=== PATIENT | female | born 1960 | race Caucasian/White ===

== ENCOUNTER 2017-02-11 00:28 | Emergency (ER) | payer SELFPAY ==
[~2017-02-11] VITALS: Ht 154.9 cm; Wt 65.0 kg
[2017-02-11] MEDS ORDERED: LISI1TAB3 PO (00:41)
[2017-02-11] MEDS ORDERED: METO25TA35 PO (00:41)
[2017-02-11 03:16] VITALS: BP 149/89
== END 2017-02-11 03:18 | disposition home or self-care (01) ==
LOC: ED 02:15
DX: F32.9 Major depressive disorder, single episode, unspecified (principal); F10.129 Alcohol abuse with intoxication, unspecified; I10 Essential (primary) hypertension
CPT/HCPCS: 99284

== ENCOUNTER 2018-12-15 15:11 | Inpatient (IN) | payer MEDICAID ==
[~2018-12-15] VITALS: Ht 154.9 cm; Wt 55.9 kg
[~2018-12-15 15:11] MED LIST: ETOMIDATE 40 MG/20 ML ONE; LISI1TAB3 PO; METO25TA35 PO; MIDAZOLAM 1 MG/ML, 5ML ONE; PROPOFOL 10 MG/ML, 100ML IV ONE; SUCCINYLCHOLINE 20 MG/ML, 10ML ONE; VECURONIUM 10 MG ONE
[2018-12-15] MEDS ORDERED: LISI-420 PO (15:50)
[2018-12-15] MEDS ORDERED: CITALOPRAM PO (15:50)
[2018-12-15] MEDS ORDERED: CITA20TA6 PO (15:50)
--- NOTE | 2018-12-15 15:54 | NUR ---
CARDIAC & VS MONITORING EQUIPMENT APPLIED, CXR DONE, LABS DRAWN, EKG BS. PT AWAKE, INTERMITTENTLY FOLLOWING COMMANDS, NON-VERBAL AT THIS TIME.
[2018-12-15 16:03] LABS: BASOPHILS # (AUTO) 0.08 x10^3/uL (0-0.1); BASOPHILS % (AUTO) 1 % (0-1); EOSINOPHILS # (AUTO) 0.04 x10^3/uL (0-0.4); EOSINOPHILS % (AUTO) 1 % (1-7); LYMPHOCYTES # (AUTO) 1.04 x10^3/uL (1-3.4); LYMPHOCYTES % (AUTO) 13 % (22-44); MD NO; MEAN CORPUSCULAR HEMOGLOBIN 33.8 pg (27.0-34.8); MEAN CORPUSCULAR HGB CONC 32.7 g/dL (32.4-35.8); MEAN CORPUSCULAR VOLUME 103.4 fL (80-100); MEAN PLATELET VOLUME 8.6 fL (7.4-10.4); MONOCYTES # (AUTO) 0.46 x10^3/uL (0.2-0.8); MONOCYTES % (AUTO) 6 % (2-9); NEUTROPHILS % (AUTO) 80 % (42-75); PLATELET COUNT 183 x10^3/uL (130-400); RED BLOOD COUNT 3.26 x10^6/uL (3.82-5.3)
--- NOTE | 2018-12-15 16:08 | NUR ---
PT INCONTINENT OF SOFT RENETTA COLORED STOOL. DR ONOFRE WILL BE NOTIFIED. PT CLEANSED.
--- NOTE | 2018-12-15 16:09 | NUR ---
TO CT PER ARELIS.
[2018-12-15 16:14] LABS: INTERNATIONAL NORMALIZED RATIO 1.08 (0.93-1.1); PROTHROMBIN TIME 11.4 Seconds (9.6-11.5)
[2018-12-15] MEDS ORDERED: LORazepam 2 MG/ML, 1ML ONE ×2 (16:16)
[2018-12-15 16:17] LABS: ALANINE AMINOTRANSFERASE 38 U/L (12-78); ALBUMIN 3.4 g/dL (3.4-5.0); ANION GAP 10 mmol/L (5-15); CALCIUM 10.3 mg/dL (8.5-10.1); CHLORIDE 107 mmol/L (98-107)
[2018-12-15 16:20] LABS: ALKALINE PHOSPHATASE 148 U/L (45-117); BILIRUBIN,TOTAL 0.8 mg/dL (0.2-1.0); TOTAL PROTEIN 7.6 g/dL (6.4-8.2); TROPONIN I < 0.015 ng/mL (0.000-0.045)
[2018-12-15 16:22] LABS: ACETAMINOPHEN < 2 mcg/mL (10-30); SALICYLATE LEVEL < 1.7 mg/dL (2.8-20.0)
--- NOTE | 2018-12-15 16:24 | NUR ---
CONVENTIONAL MORTGAGE UNDERWRITER: RAPID RESPONSE CALLED BY CT FOR SIEZURE ACTIVITY PER CT. [address] RN'S AND TECH TO CT TO ASSIST. MD RYAN. MERLYN ORDERED FROM PHARMACY AT THIS TIME.
--- NOTE | 2018-12-15 16:29 | NUR ---
PT RETURNED TO ED ROOM 35. ATIVAN 1MG IV GIVEN WHILE IN CT. PT POST-ICTAL. CARDIAC & VS MONITORING EQUIPMENT APPLIED, O2 2L PER MASK ON (APPLIED IN CT), O2 SAT 99%. SIDE RAILS UP X2. SEIZURE PADS WILL BE PLACED. O2 MASK REPLACED W/ NC. PT WAS INCONTINENT OF SOFT RENETTA COLORED STOOL DURING SEIZURE; WILL BE CLEANSED
[2018-12-15] MEDS ORDERED: LEVETIRACETAM 1,000 MG in SODIUM CHLORIDE 0.9% 100 ML IV ONE ×2 (16:30→21:00)
[2018-12-15] MEDS ORDERED: LORazepam 2 MG/ML, 1ML IVPush ONE (16:30)
[2018-12-15] MEDS ORDERED: SODIUM CHLORIDE FLUSH 10ML SYR IVF ONE (16:30)
[2018-12-15 16:38] LABS: FREE T4 (FREE THYROXINE) 1.35 ng/dL (0.76-1.46)
--- NOTE | 2018-12-15 16:43 | NUR ---
DR ONOFRE BS; APPRISED OF SITUATION.
[2018-12-15] MEDS ORDERED: HEPARIN 5,000 UNITS/ML, 1ML SQ SCH (17:00)
[2018-12-15] MEDS ORDERED: hydrALAzine 20 MG/ML, 1ML IVPush PRN (17:00)
[2018-12-15] MEDS ORDERED: POTASSIUM CHLORIDE 20 MEQ TAB.ER.PRT PO ONE (17:00)
[2018-12-15] MEDS ORDERED: LABETALOL 5MG/ML, 20ML IVPush PRN (17:00)
[2018-12-15] MEDS ORDERED: ENALAPRILAT 1.25 MG/ML, 2ML IVPush PRN (17:00)
[2018-12-15] MEDS ORDERED: ACETAMINOPHEN 325 MG TABLET PO PRN (17:00)
[2018-12-15] MEDS ORDERED: ONDANSETRON 2MG/ML, 2ML IVPush PRN (17:00)
--- NOTE | 2018-12-15 17:00 | NUR ---
ANKLE BRACELET & GLASSES BAGGED & PLACED INTO PT'S PURSE. UNABLE TO REMOVE RT WRIST BRACELET.
--- NOTE | 2018-12-15 17:05 | NUR ---
MINESHPPRA INFUSION HELD FOR MRI PURPOSES. WILL RESTART UPON PT'S RETURN. PT TO MRI PER ARELIS
--- NOTE | 2018-12-15 17:13 | NUR ---
PT REPORT TO ROXIE OSUNA RN. PT CARE TRANSFERRED.
--- NOTE | 2018-12-15 17:31 | NUR ---
PT BACK MRI.
--- NOTE | 2018-12-15 17:32 | NUR ---
LUNCH RN: LUPE MEYERS STARTED. REPROT TO ELENA HARTLEY.
[2018-12-15 17:40] LABS: CULTURE INDICATED? YES; MICROSCOPIC INDICATED
[2018-12-15 17:49] LABS: AMPHETAMINE SCREEN, URINE Negative (Negative); BARBITURATE SCREEN, URINE Negative (Negative); BENZODIAZEPINE SCREEN, URINE Negative (Negative); CANNABINOID SCREEN, URINE Positive (Negative); COCAINE SCREEN, URINE Negative (Negative); METHADONE SCREEN, URINE Negative (Negative); OPIATE SCREEN, URINE Negative (Negative)
[2018-12-15 17:59] LABS: CLOSTRIDIUM DIFFICILE ANTIGEN NEGATIVE; CLOSTRIDIUM DIFFICILE TOXIN NEGATIVE (Negative)
[2018-12-15 18:25] VITALS: BP 148/85
[2018-12-15] MEDS: AMPICILLIN 2 GM in SODIUM CHLORIDE 0.9% 100 ML IV SCH ×2 (19:00→23:05)
[2018-12-15] MEDS ORDERED: VANCOMYCIN PER PHARMACY MC PRN (19:00)
[2018-12-15] MEDS ORDERED: PHARMACY MAY ADJ FOR RENAL FX MC PRN (19:30)
[2018-12-15] MEDS ORDERED: LORazepam 2 MG/ML, 1ML IVPush PRN ×2 (19:30→22:30)
[2018-12-15 19:38] VITALS: BP 142/84
[2018-12-15] MEDS ORDERED: NOREPINEPHRINE 1 MG/ML, 4ML ONE (19:59)
[2018-12-15] MEDS ORDERED: VANCOMYCIN 1,300 MG in SODIUM CHLORIDE 0.9% 250 ML IV SCH (20:00)
[2018-12-15] MEDS ORDERED: SODIUM CHLORIDE 0.9% IV ONE (20:00)
[2018-12-15] MEDS ORDERED: PHARMACOKINETIC CONSULTATION MC ONE (20:00)
[2018-12-15] MEDS ORDERED: PHENYTOIN SODIUM IV ONE (20:00)
[2018-12-15] MEDS ORDERED: PHARMACOKINETIC MONITORING MC PRN (20:00)
[2018-12-15] MEDS ORDERED: NOREPINEPHRINE 4 MG in SODIUM CHLORIDE 0.9% 246 ML IV PRN ×2 (20:30→22:09)
[2018-12-15] MEDS ORDERED: FILTER 0.22 MICRON FOR PHENYTOIN IV PRN (20:30)
[2018-12-15] MEDS: NS + 20MEQ KCL 1,000 ML IV SCH (20:39)
[2018-12-15] MEDS ORDERED: FENTANYL PF 100 MCG/2ML ONE (20:52)
[2018-12-15] MEDS ORDERED: MIDAZOLAM 1 MG/ML, 5ML IVPush ONE (21:00)
[2018-12-15] MEDS ORDERED: FENTANYL PF 100 MCG/2ML IVPush ONE (21:00)
[2018-12-15] MEDS ORDERED: LEVETIRACETAM 500 MG TABLET PO SCH (21:00)
[2018-12-15] MEDS ORDERED: VECURONIUM 10 MG IVPush ONE (21:00)
[2018-12-15] MEDS ORDERED: DEXAMETHASONE 4 MG/ML, 5ML IVPush STA (22:13)
[2018-12-15] MEDS ORDERED: LIDOCAINE-MPF 1%, 2ML ENDO PRN (22:30)
[2018-12-15] MEDS ORDERED: PHARMACY MAY ADJ FOR RENAL FX MC SCH (22:30)
[2018-12-15] MEDS ORDERED: SODIUM CHLORIDE 0.9%, 500ML IV ONE (22:30)
[2018-12-15] MEDS ORDERED: DEXTROSE 4 GM TAB.CHEW PO PRN (22:30)
[2018-12-15] MEDS ORDERED: DEXTROSE 50%, 50ML SYRINGE IVPush PRN (22:30)
[2018-12-15] MEDS: ALBUTEROL/IPRATROPIUM 2.5MG/0.5MG, 3 ML INLINE SCH (22:30)
[2018-12-15] MEDS ORDERED: GLUCAGON 1 MG IM PRN (22:30)
[2018-12-15 22:31] LABS: GLUCOSE, CSF 106 mg/dL (40-80); TOTAL PROTEIN,CSF 74 mg/dL (15-45)
[2018-12-15] MEDS: ACYCLOVIR 650 MG in SODIUM CHLORIDE 0.9% 100 ML IV SCH (22:32)
[2018-12-15] MEDS: FENTANYL PF 100 MCG/2ML IVPush PRN (22:33)
[2018-12-15] MEDS: CEFTRIAXONE PMX 2GM/50ML 50 ML IV SCH (23:06)
[2018-12-15 23:14] LABS: ANION GAP 10 mmol/L (5-15); CHLORIDE 112 mmol/L (98-107); CREATININE 0.86 mg/dL (0.55-1.02); TRIGLYCERIDES 113 mg/dL (50-200)
[2018-12-15 23:19] LABS: TROPONIN I < 0.015 ng/mL (0.000-0.045)
[2018-12-15 23:25] LABS: BASOPHILS # (AUTO) 0.02 x10^3/uL (0-0.1); BASOPHILS % (AUTO) 0 % (0-1); EOSINOPHILS % (AUTO) 0 % (1-7); LYMPHOCYTES % (AUTO) 8 % (22-44); MD NO; MEAN CORPUSCULAR HEMOGLOBIN 34.4 pg (27.0-34.8); MEAN CORPUSCULAR HGB CONC 33.8 g/dL (32.4-35.8); MEAN CORPUSCULAR VOLUME 101.7 fL (80-100); MEAN PLATELET VOLUME 8.3 fL (7.4-10.4); MONOCYTES % (AUTO) 4 % (2-9); NEUTROPHILS # (AUTO) 6.42 x10^3/uL (1.8-6.8); NEUTROPHILS % (AUTO) 88 % (42-75); PLATELET COUNT 158 x10^3/uL (130-400); RED BLOOD COUNT 2.78 x10^6/uL (3.82-5.3); RED CELL DISTRIBUTION WIDTH 13.8 % (9.6-15.2)
[2018-12-15 23:28] LABS: MICROSCOPIC NOT IND
[2018-12-15] MEDS ORDERED: MAGNESIUM SULFATE PMX 2GM/50ML 50 ML IV ONE (23:30)
[2018-12-15] MEDS ORDERED: POTASSIUM PHOSPHATE 44 MEQ in SODIUM CHLORIDE 0.9% 500 ML IV ONE (23:30)
[2018-12-15 23:35] LABS: CULTURE INDICATED? NO
[2018-12-16] MEDS: PROPOFOL 100 ML IV PRN ×4 (00:22→14:06)
[2018-12-16] MEDS: ALBUTEROL/IPRATROPIUM 2.5MG/0.5MG, 3 ML INLINE SCH ×2 (02:00→07:15)
[2018-12-16] MEDS: AMPICILLIN 2 GM in SODIUM CHLORIDE 0.9% 100 ML IV SCH ×5 (03:49→22:02)
[2018-12-16] MEDS: HEPARIN 5,000 UNITS/ML, 1ML SQ SCH ×3 (03:53→20:07)
[2018-12-16 04:00] VITALS: BP 112/67
[2018-12-16 04:53] LABS: MEAN CORPUSCULAR HEMOGLOBIN 34.6 pg (27.0-34.8); MEAN CORPUSCULAR HGB CONC 34.1 g/dL (32.4-35.8); MEAN CORPUSCULAR VOLUME 101.5 fL (80-100); PLATELET COUNT 124 x10^3/uL (130-400); RED BLOOD COUNT 2.62 x10^6/uL (3.82-5.3); RED CELL DISTRIBUTION WIDTH 13.8 % (9.6-15.2)
[2018-12-16 04:55] LABS: ANION GAP 11 mmol/L (5-15); CALCIUM 8.1 mg/dL (8.5-10.1); CHLORIDE 112 mmol/L (98-107); CHOLESTEROL, TOTAL 121 mg/dL (140-239); CREATININE 0.95 mg/dL (0.55-1.02); TRIGLYCERIDES 90 mg/dL (50-200); VLDL CHOLESTEROL 18 mg/dL (0-25)
[2018-12-16 05:00] LABS: CHOL/HDL RATIO 1.9; HDL CHOL % 53 % (28-40); HDL CHOLESTEROL (DIRECT) 64 mg/dL (40-60); LDL CHOLESTEROL,CALCULATED 39 mg/dL (54-169); LDL/HDL RATIO 0.6 (0.5-3.0); TROPONIN I 0.021 ng/mL (0.000-0.045)
[2018-12-16 05:06] LABS: THYROID STIMULATING HORMONE 0.843 mIU/L (0.358-3.740)
[2018-12-16 05:41] LABS: BASOPHILS # (AUTO) 0.03 x10^3/uL (0-0.1); BASOPHILS % (AUTO) 0 % (0-1); EOSINOPHILS % (AUTO) 0 % (1-7); LYMPHOCYTES % (AUTO) 5 % (22-44); MD SCAN; MONOCYTES # (AUTO) 0.05 x10^3/uL (0.2-0.8); MONOCYTES % (AUTO) 1 % (2-9); NEUTROPHILS # (AUTO) 7.29 x10^3/uL (1.8-6.8); NEUTROPHILS % (AUTO) 94 % (42-75)
[2018-12-16] MEDS ORDERED: INSULIN LISPRO 100 UNITS/ML, PEN SQ-INSULIN SCH (07:00)
[2018-12-16] MEDS ORDERED: MIDAZOLAM 1 MG/ML, 2ML ONE (08:09)
[2018-12-16] MEDS: MIDAZOLAM 1 MG/ML, 2ML IVPush PRN (08:20)
[2018-12-16] MEDS: LISINOPRIL 20 MG TABLET PO SCH (09:00)
[2018-12-16] MEDS ORDERED: LEVETIRACETAM 500 MG TABLET PO SCH (09:00)
[2018-12-16] MEDS: METOPROLOL TARTRATE 25 MG TABLET PO SCH (09:00)
[2018-12-16] MEDS ORDERED: FOLIC ACID 1 MG TABLET PO ONE (09:30)
[2018-12-16] MEDS: SODIUM CHLORIDE FLUSH 10ML SYR IVF SCH ×2 (09:33→21:16)
[2018-12-16] MEDS: LEVETIRACETAM 1,000 MG in SODIUM CHLORIDE 0.9% 100 ML IV SCH ×2 (09:33→21:16)
[2018-12-16] MEDS: FAMOTIDINE 20 MG/2 ML IVPush SCH ×2 (09:48→21:16)
[2018-12-16] MEDS ORDERED: THIAMINE 200 MG in SODIUM CHLORIDE 0.9% 50 ML IV ONE (10:00)
[2018-12-16] MEDS: THIAMINE 100 MG in SODIUM CHLORIDE 0.9% 50 ML IV SCH (10:30)
[2018-12-16] MEDS: CEFTRIAXONE PMX 2GM/50ML 50 ML IV SCH ×2 (11:03→23:05)
[2018-12-16] MEDS: ACYCLOVIR 650 MG in SODIUM CHLORIDE 0.9% 100 ML IV SCH ×2 (12:01→22:02)
[2018-12-16] MEDS: VANCOMYCIN PMX 1GM/200ML 200 ML IVPB SCH (12:05)
[2018-12-16] MEDS: NS + 20MEQ KCL 1,000 ML IV SCH (12:20)
[2018-12-16 14:08] LABS: FREE T4 (FREE THYROXINE) 1.29 ng/dL (0.76-1.46)
[2018-12-16] MEDS ORDERED: MIDAZOLAM 1 MG/ML, 5ML ONE (14:39)
[2018-12-16] MEDS ORDERED: MIDAZOLAM 1 MG/ML, 5ML IVPush ONE (15:00)
[2018-12-16] MEDS: MIDAZOLAM HCL 25 MG in SODIUM CHLORIDE 0.9% 245 ML IV PRN ×2 (15:08→23:05)
[2018-12-16] MEDS: INSULIN LISPRO 100 UNITS/ML, PEN SQ-INSULIN SCH ×2 (16:31→22:00)
[2018-12-17] MEDS: NS + 20MEQ KCL 1,000 ML IV SCH (01:04)
[2018-12-17] MEDS: AMPICILLIN 2 GM in SODIUM CHLORIDE 0.9% 100 ML IV SCH ×2 (02:09→05:30)
[2018-12-17 04:00] VITALS: BP 110/64
[2018-12-17] MEDS: INSULIN LISPRO 100 UNITS/ML, PEN SQ-INSULIN SCH ×4 (04:00→21:40)
[2018-12-17] MEDS: HEPARIN 5,000 UNITS/ML, 1ML SQ SCH ×3 (04:55→21:15)
[2018-12-17 05:08] LABS: BASOPHILS # (AUTO) 0.01 x10^3/uL (0-0.1); BASOPHILS % (AUTO) 0 % (0-1); EOSINOPHILS % (AUTO) 0 % (1-7); LYMPHOCYTES # (AUTO) 1.14 x10^3/uL (1-3.4); LYMPHOCYTES % (AUTO) 16 % (22-44); MD NO; MEAN CORPUSCULAR HEMOGLOBIN 34.2 pg (27.0-34.8); MEAN CORPUSCULAR HGB CONC 33.6 g/dL (32.4-35.8); MEAN CORPUSCULAR VOLUME 101.8 fL (80-100); MEAN PLATELET VOLUME 8.5 fL (7.4-10.4); MONOCYTES # (AUTO) 0.49 x10^3/uL (0.2-0.8); MONOCYTES % (AUTO) 7 % (2-9); NEUTROPHILS # (AUTO) 5.32 x10^3/uL (1.8-6.8); NEUTROPHILS % (AUTO) 77 % (42-75); PLATELET COUNT 126 x10^3/uL (130-400); RED BLOOD COUNT 2.58 x10^6/uL (3.82-5.3); RED CELL DISTRIBUTION WIDTH 13.4 % (9.6-15.2)
[2018-12-17 05:17] LABS: ALANINE AMINOTRANSFERASE 22 U/L (12-78); ALBUMIN 2.5 g/dL (3.4-5.0); ANION GAP 11 mmol/L (5-15); CALCIUM 8.2 mg/dL (8.5-10.1); CHLORIDE 115 mmol/L (98-107); CREATININE 0.85 mg/dL (0.55-1.02)
[2018-12-17 05:20] LABS: ALKALINE PHOSPHATASE 93 U/L (45-117); BILIRUBIN,TOTAL 0.4 mg/dL (0.2-1.0); TOTAL PROTEIN 5.7 g/dL (6.4-8.2)
[2018-12-17] MEDS: MIDAZOLAM HCL 25 MG in SODIUM CHLORIDE 0.9% 245 ML IV PRN ×4 (05:30→22:04)
[2018-12-17] MEDS: VANCOMYCIN PMX 1GM/200ML 200 ML IVPB SCH (05:31)
[2018-12-17] MEDS ORDERED: NS + 20MEQ KCL 1,000 ML IV SCH (08:30)
[2018-12-17] MEDS: LISINOPRIL 20 MG TABLET PO SCH (09:00)
[2018-12-17] MEDS: METOPROLOL TARTRATE 25 MG TABLET PO SCH (09:00)
[2018-12-17] MEDS: SODIUM CHLORIDE FLUSH 10ML SYR IVF SCH ×2 (09:52→21:13)
[2018-12-17] MEDS: ACYCLOVIR 650 MG in SODIUM CHLORIDE 0.9% 100 ML IV SCH ×2 (09:52→21:12)
[2018-12-17] MEDS: LEVETIRACETAM 1,000 MG in SODIUM CHLORIDE 0.9% 100 ML IV SCH ×2 (09:52→21:12)
[2018-12-17] MEDS: FAMOTIDINE 20 MG/2 ML IVPush SCH ×2 (09:58→21:15)
[2018-12-17] MEDS: THIAMINE 100 MG in SODIUM CHLORIDE 0.9% 50 ML IV SCH (10:08)
--- NOTE | 2018-12-17 10:31 | NUR ---
TF GOAL: w/ propofol: PROMOTE @ 45ML/HR off propofol: PROMOTE @ 55ML/HR
[2018-12-17] MEDS ORDERED: MAGNESIUM SULFATE 4 GM in SODIUM CHLORIDE 0.9% 100 ML IV ONE (16:30)
[2018-12-17] MEDS: FENTANYL PF 100 MCG/2ML IVPush PRN ×2 (19:15→22:04)
[2018-12-17] MEDS: CEFTRIAXONE PMX 2GM/50ML 50 ML IV SCH (22:59)
[2018-12-18] MEDS: VANCOMYCIN PMX 1GM/200ML 200 ML IVPB SCH ×2 (00:11→18:06)
[2018-12-18] MEDS: MIDAZOLAM HCL 25 MG in SODIUM CHLORIDE 0.9% 245 ML IV PRN (01:12)
[2018-12-18] MEDS: INSULIN LISPRO 100 UNITS/ML, PEN SQ-INSULIN SCH ×4 (04:00→23:05)
[2018-12-18] MEDS: HEPARIN 5,000 UNITS/ML, 1ML SQ SCH ×3 (04:08→20:38)
[2018-12-18] MEDS: ACYCLOVIR 650 MG in SODIUM CHLORIDE 0.9% 100 ML IV SCH ×3 (04:08→20:37)
[2018-12-18] MEDS ORDERED: MIDAZOLAM HCL 50 MG in SODIUM CHLORIDE 0.9% 240 ML IV PRN (04:30)
[2018-12-18 04:53] LABS: BASOPHILS # (AUTO) 0.01 x10^3/uL (0-0.1); BASOPHILS % (AUTO) 0 % (0-1); EOSINOPHILS # (AUTO) 0.01 x10^3/uL (0-0.4); EOSINOPHILS % (AUTO) 0 % (1-7); LYMPHOCYTES % (AUTO) 25 % (22-44); MD NO; MEAN CORPUSCULAR HEMOGLOBIN 33.2 pg (27.0-34.8); MEAN CORPUSCULAR HGB CONC 32.7 g/dL (32.4-35.8); MEAN CORPUSCULAR VOLUME 101.5 fL (80-100); MEAN PLATELET VOLUME 8.6 fL (7.4-10.4); MONOCYTES # (AUTO) 0.39 x10^3/uL (0.2-0.8); MONOCYTES % (AUTO) 10 % (2-9); NEUTROPHILS # (AUTO) 2.56 x10^3/uL (1.8-6.8); NEUTROPHILS % (AUTO) 64 % (42-75); PLATELET COUNT 108 x10^3/uL (130-400); RED BLOOD COUNT 2.46 x10^6/uL (3.82-5.3); RED CELL DISTRIBUTION WIDTH 13.3 % (9.6-15.2)
[2018-12-18 05:02] LABS: ALANINE AMINOTRANSFERASE 20 U/L (12-78); ANION GAP 9 mmol/L (5-15); CALCIUM 8.5 mg/dL (8.5-10.1); CHLORIDE 115 mmol/L (98-107)
[2018-12-18 05:05] LABS: ALKALINE PHOSPHATASE 86 U/L (45-117); BILIRUBIN,TOTAL 0.4 mg/dL (0.2-1.0); CREATININE 0.87 mg/dL (0.55-1.02); TOTAL PROTEIN 5.1 g/dL (6.4-8.2); TRIGLYCERIDES 87 mg/dL (50-200)
[2018-12-18] MEDS: ALBUTEROL/IPRATROPIUM 2.5MG/0.5MG, 3 ML INLINE PRN ×2 (06:15→10:00)
[2018-12-18] MEDS ORDERED: POTASSIUM CHLORIDE 10% 40 MEQ/30 ML UDC PO ONE (08:00)
[2018-12-18] MEDS: LISINOPRIL 20 MG TABLET PO SCH (09:00)
[2018-12-18] MEDS: SODIUM CHLORIDE FLUSH 10ML SYR IVF SCH ×2 (10:20→20:38)
[2018-12-18] MEDS: METOPROLOL TARTRATE 25 MG TABLET PO SCH (10:20)
[2018-12-18] MEDS: FENTANYL PF 100 MCG/2ML IVPush PRN ×7 (10:20→23:00)
[2018-12-18] MEDS: FAMOTIDINE 20 MG/2 ML IVPush SCH ×2 (10:20→20:38)
[2018-12-18] MEDS: DEXMEDETOMIDINE 200 MCG in SODIUM CHLORIDE 0.9% 48 ML IV PRN ×3 (10:22→20:51)
[2018-12-18] MEDS: THIAMINE 100 MG in SODIUM CHLORIDE 0.9% 50 ML IV SCH (10:35)
[2018-12-18] MEDS: LEVETIRACETAM 1,000 MG in SODIUM CHLORIDE 0.9% 100 ML IV SCH ×2 (10:35→21:48)
[2018-12-18] MEDS: DIAZEPAM 5 MG/ML, 2ML IVPush PRN ×2 (15:06→23:17)
[2018-12-18] MEDS: CEFTRIAXONE PMX 2GM/50ML 50 ML IV SCH (23:21)
[2018-12-19] MEDS: PROPOFOL 100 ML IV PRN ×2 (01:14→10:07)
[2018-12-19] MEDS: DEXMEDETOMIDINE 200 MCG in SODIUM CHLORIDE 0.9% 48 ML IV PRN ×4 (02:44→23:34)
[2018-12-19] MEDS: ACYCLOVIR 650 MG in SODIUM CHLORIDE 0.9% 100 ML IV SCH ×3 (03:40→20:45)
[2018-12-19] MEDS: HEPARIN 5,000 UNITS/ML, 1ML SQ SCH ×3 (03:47→20:45)
[2018-12-19] MEDS: INSULIN LISPRO 100 UNITS/ML, PEN SQ-INSULIN SCH ×4 (03:47→22:00)
[2018-12-19 06:12] LABS: ALANINE AMINOTRANSFERASE 19 U/L (12-78); ALBUMIN 1.9 g/dL (3.4-5.0); ANION GAP 7 mmol/L (5-15); CALCIUM 8.9 mg/dL (8.5-10.1); CHLORIDE 117 mmol/L (98-107); CREATININE 0.83 mg/dL (0.55-1.02)
[2018-12-19 06:15] LABS: ALKALINE PHOSPHATASE 79 U/L (45-117); BILIRUBIN,TOTAL 0.3 mg/dL (0.2-1.0); TOTAL PROTEIN 4.8 g/dL (6.4-8.2)
[2018-12-19 06:16] LABS: MEAN CORPUSCULAR HEMOGLOBIN 32.7 pg (27.0-34.8); MEAN CORPUSCULAR HGB CONC 32.7 g/dL (32.4-35.8); MEAN PLATELET VOLUME 9.3 fL (7.4-10.4); PLATELET COUNT 97 x10^3/uL (130-400); RED CELL DISTRIBUTION WIDTH 13.5 % (9.6-15.2)
[2018-12-19 06:35] LABS: BASOPHILS # (AUTO) 0.03 x10^3/uL (0-0.1); BASOPHILS % (AUTO) 1 % (0-1); EOSINOPHILS # (AUTO) 0.02 x10^3/uL (0-0.4); EOSINOPHILS % (AUTO) 1 % (1-7); LYMPHOCYTES # (AUTO) 0.72 x10^3/uL (1-3.4); LYMPHOCYTES % (AUTO) 22 % (22-44); MD SCAN; MONOCYTES # (AUTO) 0.37 x10^3/uL (0.2-0.8); MONOCYTES % (AUTO) 11 % (2-9); NEUTROPHILS # (AUTO) 2.16 x10^3/uL (1.8-6.8); NEUTROPHILS % (AUTO) 66 % (42-75)
[2018-12-19] MEDS ORDERED: MAGNESIUM SULFATE PMX 4GM/100M 100 ML IVPB ONE (07:30)
[2018-12-19] MEDS ORDERED: DIAZEPAM 5 MG/ML, 2ML IVPush SCH (08:30)
[2018-12-19] MEDS: metroNIDAZOLE 500 MG TABLET PO SCH ×3 (10:07→20:45)
[2018-12-19] MEDS: LISINOPRIL 20 MG TABLET PO SCH (10:07)
[2018-12-19] MEDS: FAMOTIDINE 20 MG/2 ML IVPush SCH ×2 (10:07→20:45)
[2018-12-19] MEDS: POTASSIUM CHLORIDE 10% 40 MEQ/30 ML UDC PO SCH ×2 (10:07→20:45)
[2018-12-19] MEDS: LEVETIRACETAM 1,000 MG in SODIUM CHLORIDE 0.9% 100 ML IV SCH ×2 (10:08→21:38)
[2018-12-19] MEDS: SODIUM CHLORIDE FLUSH 10ML SYR IVF SCH ×2 (10:08→20:46)
[2018-12-19] MEDS: METOPROLOL TARTRATE 25 MG TABLET PO SCH (10:08)
[2018-12-19] MEDS: THIAMINE 200 MG in SODIUM CHLORIDE 0.9% 50 ML IV SCH (10:08)
[2018-12-19] MEDS: FENTANYL PF 100 MCG/2ML IVPush PRN (12:49)
[2018-12-19] MEDS ORDERED: DIAZEPAM 5 MG/ML, 10ML VIAL IVPush SCH (13:00)
[2018-12-19] MEDS: MIDAZOLAM 1 MG/ML, 2ML IVPush PRN (21:39)
[2018-12-20] MEDS ORDERED: DIAZEPAM 5 MG TABLET PO PRN (01:00)
[2018-12-20] MEDS: INSULIN LISPRO 100 UNITS/ML, PEN SQ-INSULIN SCH ×4 (04:00→21:43)
[2018-12-20] MEDS: ACYCLOVIR 650 MG in SODIUM CHLORIDE 0.9% 100 ML IV SCH ×2 (04:33→12:01)
[2018-12-20] MEDS: HEPARIN 5,000 UNITS/ML, 1ML SQ SCH ×3 (04:33→21:42)
[2018-12-20 05:11] LABS: BASOPHILS # (AUTO) 0.04 x10^3/uL (0-0.1); BASOPHILS % (AUTO) 1 % (0-1); EOSINOPHILS # (AUTO) 0.04 x10^3/uL (0-0.4); EOSINOPHILS % (AUTO) 1 % (1-7); LYMPHOCYTES # (AUTO) 1.11 x10^3/uL (1-3.4); LYMPHOCYTES % (AUTO) 24 % (22-44); MD NO; MEAN CORPUSCULAR HEMOGLOBIN 33.4 pg (27.0-34.8); MEAN CORPUSCULAR HGB CONC 32.9 g/dL (32.4-35.8); MEAN CORPUSCULAR VOLUME 101.6 fL (80-100); MEAN PLATELET VOLUME 8.9 fL (7.4-10.4); MONOCYTES # (AUTO) 0.63 x10^3/uL (0.2-0.8); MONOCYTES % (AUTO) 14 % (2-9); NEUTROPHILS # (AUTO) 2.84 x10^3/uL (1.8-6.8); NEUTROPHILS % (AUTO) 61 % (42-75); PLATELET COUNT 115 x10^3/uL (130-400); RED BLOOD COUNT 2.33 x10^6/uL (3.82-5.3); RED CELL DISTRIBUTION WIDTH 13.6 % (9.6-15.2)
[2018-12-20] MEDS: DEXMEDETOMIDINE 200 MCG in SODIUM CHLORIDE 0.9% 48 ML IV PRN (05:11)
[2018-12-20] MEDS: LISINOPRIL 20 MG TABLET PO SCH (07:47)
[2018-12-20] MEDS: metroNIDAZOLE 500 MG TABLET PO SCH ×3 (07:47→21:43)
[2018-12-20] MEDS: METOPROLOL TARTRATE 25 MG TABLET PO SCH (07:49)
[2018-12-20] MEDS: FAMOTIDINE 20 MG/2 ML IVPush SCH (07:50)
[2018-12-20] MEDS: SODIUM CHLORIDE FLUSH 10ML SYR IVF SCH ×2 (07:50→21:43)
[2018-12-20 08:39] LABS: CLOSTRIDIUM DIFFICILE ANTIGEN NEGATIVE; CLOSTRIDIUM DIFFICILE TOXIN NEGATIVE (Negative)
[2018-12-20] MEDS: LEVETIRACETAM 1,000 MG in SODIUM CHLORIDE 0.9% 100 ML IV SCH (09:45)
[2018-12-20] MEDS: THIAMINE 200 MG in SODIUM CHLORIDE 0.9% 50 ML IV SCH (10:27)
[2018-12-20] MEDS ORDERED: GADOBUTROL 7.5 MMOL/7.5 ML PFS ONE (13:15)
[2018-12-20 13:45] VITALS: BP 148/84
[2018-12-20 20:25] VITALS: BP 142/88
[2018-12-20] MEDS: LEVETIRACETAM 500 MG TABLET PO SCH (21:42)
[2018-12-21] MEDS ORDERED: LORazepam 2 MG/ML, 1ML IVPush ONE
[2018-12-21 01:42] VITALS: BP 152/99
[2018-12-21] MEDS: LORazepam 2 MG/ML, 1ML IVPush SCH ×7 (03:05→23:21)
[2018-12-21] MEDS: INSULIN LISPRO 100 UNITS/ML, PEN SQ-INSULIN SCH ×4 (04:22→21:41)
[2018-12-21] MEDS: HEPARIN 5,000 UNITS/ML, 1ML SQ SCH ×3 (04:23→20:35)
[2018-12-21 05:57] LABS: BASOPHILS # (AUTO) 0.07 x10^3/uL (0-0.1); BASOPHILS % (AUTO) 1 % (0-1); EOSINOPHILS # (AUTO) 0.11 x10^3/uL (0-0.4); EOSINOPHILS % (AUTO) 2 % (1-7); LYMPHOCYTES # (AUTO) 1.69 x10^3/uL (1-3.4); LYMPHOCYTES % (AUTO) 24 % (22-44); MD NO; MEAN CORPUSCULAR HEMOGLOBIN 32.6 pg (27.0-34.8); MEAN CORPUSCULAR HGB CONC 32.2 g/dL (32.4-35.8); MEAN CORPUSCULAR VOLUME 101.3 fL (80-100); MONOCYTES # (AUTO) 0.78 x10^3/uL (0.2-0.8); MONOCYTES % (AUTO) 11 % (2-9); NEUTROPHILS # (AUTO) 4.26 x10^3/uL (1.8-6.8); NEUTROPHILS % (AUTO) 62 % (42-75); PLATELET COUNT 176 x10^3/uL (130-400); RED CELL DISTRIBUTION WIDTH 13.6 % (9.6-15.2)
[2018-12-21 06:08] LABS: ANION GAP 7 mmol/L (5-15); CALCIUM 9.5 mg/dL (8.5-10.1); CHLORIDE 110 mmol/L (98-107); CREATININE 0.82 mg/dL (0.55-1.02)
[2018-12-21 07:23] VITALS: BP 129/84
[2018-12-21] MEDS ORDERED: MAGNESIUM SULFATE PMX 4GM/100M 100 ML IV ONE (08:00)
[2018-12-21] MEDS: LEVETIRACETAM 500 MG TABLET PO SCH ×2 (08:22→20:36)
[2018-12-21] MEDS: LISINOPRIL 20 MG TABLET PO SCH (08:22)
[2018-12-21] MEDS: LACTOBACILLUS CHEW TABLET PO SCH ×3 (08:22→20:36)
[2018-12-21] MEDS: SODIUM CHLORIDE FLUSH 10ML SYR IVF SCH ×2 (08:24→20:37)
[2018-12-21] MEDS ORDERED: POTASSIUM CHLORIDE 20 MEQ TAB.ER.PRT PO ONE (08:30)
[2018-12-21] MEDS: THIAMINE 200 MG in SODIUM CHLORIDE 0.9% 50 ML IV SCH (09:27)
[2018-12-21 13:20] VITALS: BP 120/82
[2018-12-21] MEDS: CARVEDILOL 6.25 MG TABLET PO SCH (17:20)
[2018-12-21 19:25] VITALS: BP 126/83
[2018-12-22 01:08] VITALS: BP 136/88
[2018-12-22] MEDS: LORazepam 2 MG/ML, 1ML IVPush SCH ×2 (01:56→05:15)
[2018-12-22] MEDS: INSULIN LISPRO 100 UNITS/ML, PEN SQ-INSULIN SCH ×4 (04:05→23:14)
[2018-12-22] MEDS: HEPARIN 5,000 UNITS/ML, 1ML SQ SCH ×3 (04:05→20:11)
[2018-12-22 05:34] LABS: BASOPHILS # (AUTO) 0.11 x10^3/uL (0-0.1); BASOPHILS % (AUTO) 2 % (0-1); EOSINOPHILS # (AUTO) 0.17 x10^3/uL (0-0.4); EOSINOPHILS % (AUTO) 3 % (1-7); LYMPHOCYTES # (AUTO) 1.54 x10^3/uL (1-3.4); LYMPHOCYTES % (AUTO) 29 % (22-44); MD NO; MEAN CORPUSCULAR HEMOGLOBIN 33.7 pg (27.0-34.8); MEAN CORPUSCULAR HGB CONC 33.7 g/dL (32.4-35.8); MEAN CORPUSCULAR VOLUME 100.2 fL (80-100); MEAN PLATELET VOLUME 8.5 fL (7.4-10.4); MONOCYTES # (AUTO) 0.59 x10^3/uL (0.2-0.8); MONOCYTES % (AUTO) 11 % (2-9); NEUTROPHILS # (AUTO) 2.94 x10^3/uL (1.8-6.8); NEUTROPHILS % (AUTO) 55 % (42-75); PLATELET COUNT 157 x10^3/uL (130-400); RED BLOOD COUNT 2.39 x10^6/uL (3.82-5.3); RED CELL DISTRIBUTION WIDTH 13.4 % (9.6-15.2)
[2018-12-22 05:40] LABS: ANION GAP 7 mmol/L (5-15); CALCIUM 9.2 mg/dL (8.5-10.1); CHLORIDE 108 mmol/L (98-107)
[2018-12-22 05:44] LABS: % IRON SATURATION 41 % (20-55); CREATININE 0.66 mg/dL (0.55-1.02); IRON LEVEL 52 mcg/dL (50-170); TOTAL IRON BINDING CAPACITY 126 mcg/dL (250-450)
[2018-12-22 06:09] VITALS: BP 127/79
[2018-12-22] MEDS: CARVEDILOL 6.25 MG TABLET PO SCH ×2 (06:10→17:25)
[2018-12-22 06:57] VITALS: BP 132/80
[2018-12-22] MEDS: LACTOBACILLUS CHEW TABLET PO SCH ×3 (09:57→20:11)
[2018-12-22] MEDS: LEVETIRACETAM 500 MG TABLET PO SCH ×2 (09:57→20:11)
[2018-12-22] MEDS: LISINOPRIL 20 MG TABLET PO SCH (09:58)
[2018-12-22] MEDS: SODIUM CHLORIDE FLUSH 10ML SYR IVF SCH ×2 (09:58→20:13)
[2018-12-22] MEDS: THIAMINE 200 MG in SODIUM CHLORIDE 0.9% 50 ML IV SCH (10:09)
[2018-12-22 12:20] VITALS: BP 15/73
[2018-12-22] MEDS ORDERED: MAGNESIUM SULFATE 4 GM in SODIUM CHLORIDE 0.9% 100 ML IV ONE (16:00)
[2018-12-22 17:30] VITALS: BP 125/85
[2018-12-22 19:05] VITALS: BP 107/74
[2018-12-23 02:39] VITALS: BP 129/80
[2018-12-23] MEDS: INSULIN LISPRO 100 UNITS/ML, PEN SQ-INSULIN SCH ×4 (03:59→22:00)
[2018-12-23] MEDS: HEPARIN 5,000 UNITS/ML, 1ML SQ SCH ×3 (03:59→21:07)
[2018-12-23 05:12] LABS: BASOPHILS # (AUTO) 0.07 x10^3/uL (0-0.1); BASOPHILS % (AUTO) 1 % (0-1); EOSINOPHILS # (AUTO) 0.18 x10^3/uL (0-0.4); EOSINOPHILS % (AUTO) 3 % (1-7); LYMPHOCYTES # (AUTO) 1.24 x10^3/uL (1-3.4); LYMPHOCYTES % (AUTO) 21 % (22-44); MD NO; MEAN CORPUSCULAR HEMOGLOBIN 33.9 pg (27.0-34.8); MEAN CORPUSCULAR HGB CONC 33.5 g/dL (32.4-35.8); MEAN CORPUSCULAR VOLUME 101.2 fL (80-100); MEAN PLATELET VOLUME 8.1 fL (7.4-10.4); MONOCYTES % (AUTO) 10 % (2-9); NEUTROPHILS # (AUTO) 3.74 x10^3/uL (1.8-6.8); NEUTROPHILS % (AUTO) 64 % (42-75); PLATELET COUNT 199 x10^3/uL (130-400); RED BLOOD COUNT 2.73 x10^6/uL (3.82-5.3); RED CELL DISTRIBUTION WIDTH 13.7 % (9.6-15.2)
[2018-12-23] MEDS: CARVEDILOL 6.25 MG TABLET PO SCH ×2 (06:05→16:41)
[2018-12-23] MEDS: ZIPRASIDONE 20 MG INJ IM PRN ×2 (06:56→09:33)
[2018-12-23] MEDS: SODIUM CHLORIDE FLUSH 10ML SYR IVF SCH ×2 (10:01→21:07)
[2018-12-23] MEDS: LACTOBACILLUS CHEW TABLET PO SCH ×3 (10:01→21:06)
[2018-12-23] MEDS: LISINOPRIL 20 MG TABLET PO SCH (10:01)
[2018-12-23] MEDS: LEVETIRACETAM 500 MG TABLET PO SCH ×2 (10:01→21:06)
[2018-12-23] MEDS ORDERED: LORazepam 0.5MG TABLET PO ONE (16:30)
[2018-12-23 19:02] VITALS: BP 163/103
[2018-12-23] MEDS: LORazepam 0.5MG TABLET PO SCH (21:06)
[2018-12-24 00:39] VITALS: BP 159/99
[2018-12-24] MEDS: ZIPRASIDONE 20 MG INJ IM PRN ×2 (01:58→07:11)
[2018-12-24] MEDS: HEPARIN 5,000 UNITS/ML, 1ML SQ SCH (04:00)
[2018-12-24] MEDS: INSULIN LISPRO 100 UNITS/ML, PEN SQ-INSULIN SCH ×4 (04:00→20:23)
[2018-12-24] MEDS: CARVEDILOL 6.25 MG TABLET PO SCH (05:39)
[2018-12-24 05:59] LABS: BASOPHILS # (AUTO) 0.06 x10^3/uL (0-0.1); BASOPHILS % (AUTO) 1 % (0-1); EOSINOPHILS % (AUTO) 3 % (1-7); LYMPHOCYTES # (AUTO) 1.58 x10^3/uL (1-3.4); LYMPHOCYTES % (AUTO) 21 % (22-44); MD NO; MEAN CORPUSCULAR HEMOGLOBIN 33.3 pg (27.0-34.8); MEAN CORPUSCULAR HGB CONC 33.4 g/dL (32.4-35.8); MEAN CORPUSCULAR VOLUME 99.6 fL (80-100); MONOCYTES % (AUTO) 9 % (2-9); NEUTROPHILS # (AUTO) 5.08 x10^3/uL (1.8-6.8); NEUTROPHILS % (AUTO) 67 % (42-75); PLATELET COUNT 250 x10^3/uL (130-400); RED BLOOD COUNT 2.81 x10^6/uL (3.82-5.3); RED CELL DISTRIBUTION WIDTH 13.8 % (9.6-15.2)
[2018-12-24 06:34] VITALS: BP 147/92
[2018-12-24] MEDS: LEVETIRACETAM 500 MG TABLET PO SCH ×2 (09:57→20:19)
[2018-12-24] MEDS: LISINOPRIL 20 MG TABLET PO SCH (09:57)
[2018-12-24] MEDS: LACTOBACILLUS CHEW TABLET PO SCH ×3 (09:57→20:20)
[2018-12-24] MEDS: LORazepam 0.5MG TABLET PO SCH ×2 (09:57→20:19)
[2018-12-24] MEDS: SODIUM CHLORIDE FLUSH 10ML SYR IVF SCH ×2 (09:58→20:19)
[2018-12-24] MEDS ORDERED: PROMETHAZINE 25 MG/ML, 1ML ONE (11:24)
[2018-12-24] MEDS ORDERED: ALTEPLASE 6 MG in SYRINGE 1 EA IVPush ONE (12:30)
[2018-12-24] MEDS ORDERED: ALTEPLASE IV ONE (12:49)
[2018-12-24] MEDS ORDERED: ALTEPLASE 6 MG in SYRINGE 1 EA IV ONE (13:00)
[2018-12-24] MEDS ORDERED: hydrALAzine 20 MG/ML, 1ML ONE (14:07)
[2018-12-24] MEDS ORDERED: hydrALAzine 20 MG/ML, 1ML IV PRN (14:30)
[2018-12-24] MEDS ORDERED: LORazepam 2 MG/ML, 1ML IVPush PRN ×2 (15:00)
[2018-12-24] MEDS: CARVEDILOL 3.125 MG TABLET PO SCH (17:24)
[2018-12-24] MEDS ORDERED: LABETALOL 20 MG/4 ML IV PRN (20:30)
[2018-12-25 04:00] VITALS: BP 130/95
[2018-12-25 04:58] LABS: ALBUMIN 2.5 g/dL (3.4-5.0); ANION GAP 8 mmol/L (5-15); CALCIUM 10.3 mg/dL (8.5-10.1); CHLORIDE 106 mmol/L (98-107)
[2018-12-25 04:58] LABS: BASOPHILS # (AUTO) 0.08 x10^3/uL (0-0.1); BASOPHILS % (AUTO) 1 % (0-1); EOSINOPHILS # (AUTO) 0.21 x10^3/uL (0-0.4); EOSINOPHILS % (AUTO) 3 % (1-7); LYMPHOCYTES # (AUTO) 1.72 x10^3/uL (1-3.4); LYMPHOCYTES % (AUTO) 24 % (22-44); MD NO; MEAN CORPUSCULAR HEMOGLOBIN 33.3 pg (27.0-34.8); MEAN CORPUSCULAR HGB CONC 33.4 g/dL (32.4-35.8); MEAN CORPUSCULAR VOLUME 99.7 fL (80-100); MEAN PLATELET VOLUME 7.9 fL (7.4-10.4); MONOCYTES # (AUTO) 0.64 x10^3/uL (0.2-0.8); MONOCYTES % (AUTO) 9 % (2-9); NEUTROPHILS # (AUTO) 4.46 x10^3/uL (1.8-6.8); NEUTROPHILS % (AUTO) 63 % (42-75); PLATELET COUNT 214 x10^3/uL (130-400); RED BLOOD COUNT 2.77 x10^6/uL (3.82-5.3); RED CELL DISTRIBUTION WIDTH 14.1 % (9.6-15.2)
[2018-12-25 05:02] LABS: ALANINE AMINOTRANSFERASE 29 U/L (12-78); ALKALINE PHOSPHATASE 110 U/L (45-117); BILIRUBIN,TOTAL 0.6 mg/dL (0.2-1.0); CREATININE 0.63 mg/dL (0.55-1.02)
[2018-12-25] MEDS: CARVEDILOL 3.125 MG TABLET PO SCH (06:10)
[2018-12-25] MEDS: INSULIN LISPRO 100 UNITS/ML, PEN SQ-INSULIN SCH ×4 (07:00→20:49)
[2018-12-25] MEDS: LACTOBACILLUS CHEW TABLET PO SCH ×3 (09:00→20:49)
[2018-12-25] MEDS: LORazepam 0.5MG TABLET PO SCH ×2 (09:29→20:49)
[2018-12-25] MEDS: LEVETIRACETAM 500 MG TABLET PO SCH (09:30)
[2018-12-25] MEDS: LISINOPRIL 20 MG TABLET PO SCH (09:32)
[2018-12-25] MEDS: VALPROATE SODIUM 250 MG in DEXTROSE 5% 100 ML IV SCH (13:44)
[2018-12-25] MEDS ORDERED: MAGNESIUM SULFATE 4 GM in SODIUM CHLORIDE 0.9% 100 ML IV ONE (14:00)
[2018-12-25] MEDS ORDERED: THIAMINE 200 MG in SODIUM CHLORIDE 0.9% 50 ML IV SCH (14:00)
[2018-12-25] MEDS ORDERED: MAGNESIUM SULFATE PMX 4GM/100M 100 ML IVPB ONE (14:00)
[2018-12-25] MEDS ORDERED: methylPREDNISolone SOD SUCC 125 MG/2 ML ONE (14:16)
[2018-12-25] MEDS: SODIUM CHLORIDE FLUSH 10ML SYR IVF SCH ×2 (15:05→20:49)
[2018-12-25 19:25] VITALS: BP 124/80
[2018-12-25] MEDS: ZIPRASIDONE 20 MG INJ IM PRN (23:32)
[2018-12-26 01:27] VITALS: BP 123/79
[2018-12-26] MEDS ORDERED: LORazepam 2 MG/ML, 1ML IVPush PRN (01:30)
[2018-12-26 04:00] VITALS: BP 127/75
[2018-12-26 06:13] LABS: ANION GAP 7 mmol/L (5-15); CHLORIDE 107 mmol/L (98-107)
[2018-12-26 06:15] LABS: CREATININE 0.76 mg/dL (0.55-1.02)
[2018-12-26 06:32] LABS: BASOPHILS # (AUTO) 0.05 x10^3/uL (0-0.1); BASOPHILS % (AUTO) 1 % (0-1); EOSINOPHILS # (AUTO) 0.18 x10^3/uL (0-0.4); EOSINOPHILS % (AUTO) 3 % (1-7); LYMPHOCYTES # (AUTO) 1.38 x10^3/uL (1-3.4); LYMPHOCYTES % (AUTO) 25 % (22-44); MD NO; MEAN CORPUSCULAR HEMOGLOBIN 33.5 pg (27.0-34.8); MEAN CORPUSCULAR HGB CONC 33.7 g/dL (32.4-35.8); MEAN CORPUSCULAR VOLUME 99.3 fL (80-100); MEAN PLATELET VOLUME 7.6 fL (7.4-10.4); MONOCYTES % (AUTO) 9 % (2-9); NEUTROPHILS # (AUTO) 3.41 x10^3/uL (1.8-6.8); NEUTROPHILS % (AUTO) 62 % (42-75); PLATELET COUNT 266 x10^3/uL (130-400); RED BLOOD COUNT 2.72 x10^6/uL (3.82-5.3); RED CELL DISTRIBUTION WIDTH 14.5 % (9.6-15.2)
[2018-12-26] MEDS: INSULIN LISPRO 100 UNITS/ML, PEN SQ-INSULIN SCH ×4 (07:00→20:22)
[2018-12-26 07:20] VITALS: BP 123/81
[2018-12-26] MEDS: LORazepam 0.5MG TABLET PO SCH ×3 (09:00→20:52)
[2018-12-26] MEDS: LACTOBACILLUS CHEW TABLET PO SCH ×4 (09:00→20:53)
[2018-12-26] MEDS: SODIUM CHLORIDE FLUSH 10ML SYR IVF SCH ×2 (09:00→20:23)
[2018-12-26] MEDS: VALPROATE SODIUM 250 MG in DEXTROSE 5% 100 ML IV SCH ×3 (12:03→23:28)
[2018-12-26 14:00] VITALS: BP 114/76
[2018-12-26] MEDS: THIAMINE 100MG TABLET PO SCH (14:00)
[2018-12-26 20:46] VITALS: BP 146/86
[2018-12-27 01:45] VITALS: BP 114/65
[2018-12-27] MEDS: ZIPRASIDONE 20 MG INJ IM PRN (05:25)
[2018-12-27 06:49] LABS: BASOPHILS # (AUTO) 0.03 x10^3/uL (0-0.1); BASOPHILS % (AUTO) 1 % (0-1); EOSINOPHILS # (AUTO) 0.08 x10^3/uL (0-0.4); EOSINOPHILS % (AUTO) 2 % (1-7); LYMPHOCYTES % (AUTO) 21 % (22-44); MD NO; MEAN CORPUSCULAR HEMOGLOBIN 32.9 pg (27.0-34.8); MEAN CORPUSCULAR HGB CONC 33.6 g/dL (32.4-35.8); MEAN CORPUSCULAR VOLUME 97.8 fL (80-100); MEAN PLATELET VOLUME 7.3 fL (7.4-10.4); MONOCYTES % (AUTO) 8 % (2-9); NEUTROPHILS # (AUTO) 2.66 x10^3/uL (1.8-6.8); NEUTROPHILS % (AUTO) 69 % (42-75); PLATELET COUNT 222 x10^3/uL (130-400); RED CELL DISTRIBUTION WIDTH 14.3 % (9.6-15.2)
[2018-12-27 06:51] LABS: ANION GAP 8 mmol/L (5-15); CALCIUM 10.5 mg/dL (8.5-10.1); CHLORIDE 109 mmol/L (98-107); CREATININE 0.73 mg/dL (0.55-1.02)
[2018-12-27] MEDS: INSULIN LISPRO 100 UNITS/ML, PEN SQ-INSULIN SCH ×4 (07:00→20:08)
[2018-12-27 07:04] VITALS: BP 135/84
[2018-12-27] MEDS: SODIUM CHLORIDE FLUSH 10ML SYR IVF SCH ×2 (07:42→20:08)
[2018-12-27] MEDS: LORazepam 0.5MG TABLET PO SCH ×2 (07:42→20:08)
[2018-12-27] MEDS: LACTOBACILLUS CHEW TABLET PO SCH ×3 (07:42→20:08)
[2018-12-27 12:21] VITALS: BP 151/91
[2018-12-27] MEDS: VALPROATE SODIUM 250 MG in DEXTROSE 5% 100 ML IV SCH (13:07)
[2018-12-27] MEDS: THIAMINE 100MG TABLET PO SCH (14:21)
[2018-12-27 20:27] VITALS: BP 130/78
[2018-12-28] MEDS: VALPROATE SODIUM 250 MG in DEXTROSE 5% 100 ML IV SCH ×2 (00:24→11:59)
[2018-12-28 01:10] VITALS: BP 108/71
[2018-12-28 05:04] LABS: BASOPHILS # (AUTO) 0.04 x10^3/uL (0-0.1); BASOPHILS % (AUTO) 1 % (0-1); EOSINOPHILS # (AUTO) 0.19 x10^3/uL (0-0.4); EOSINOPHILS % (AUTO) 4 % (1-7); LYMPHOCYTES # (AUTO) 1.22 x10^3/uL (1-3.4); LYMPHOCYTES % (AUTO) 27 % (22-44); MD NO; MEAN CORPUSCULAR HEMOGLOBIN 32.3 pg (27.0-34.8); MEAN CORPUSCULAR HGB CONC 32.8 g/dL (32.4-35.8); MEAN CORPUSCULAR VOLUME 98.5 fL (80-100); MEAN PLATELET VOLUME 7.8 fL (7.4-10.4); MONOCYTES # (AUTO) 0.36 x10^3/uL (0.2-0.8); MONOCYTES % (AUTO) 8 % (2-9); NEUTROPHILS # (AUTO) 2.63 x10^3/uL (1.8-6.8); NEUTROPHILS % (AUTO) 59 % (42-75); PLATELET COUNT 217 x10^3/uL (130-400); RED BLOOD COUNT 2.59 x10^6/uL (3.82-5.3); RED CELL DISTRIBUTION WIDTH 14.3 % (9.6-15.2)
[2018-12-28 05:17] LABS: CHLORIDE 109 mmol/L (98-107)
[2018-12-28 05:22] LABS: ANION GAP 7 mmol/L (5-15); CALCIUM 10.5 mg/dL (8.5-10.1)
[2018-12-28 06:31] VITALS: BP 119/66
[2018-12-28] MEDS: INSULIN LISPRO 100 UNITS/ML, PEN SQ-INSULIN SCH ×4 (07:00→20:34)
[2018-12-28] MEDS: SODIUM CHLORIDE FLUSH 10ML SYR IVF SCH ×2 (09:00→20:27)
[2018-12-28] MEDS: LACTOBACILLUS CHEW TABLET PO SCH ×3 (10:41→20:27)
[2018-12-28] MEDS: LORazepam 0.5MG TABLET PO SCH ×2 (10:42→20:27)
[2018-12-28] MEDS: THIAMINE 100MG TABLET PO SCH (11:59)
[2018-12-28 12:50] VITALS: BP 128/80
[2018-12-28 20:25] VITALS: BP 130/87
[2018-12-29] MEDS: VALPROATE SODIUM 250 MG in DEXTROSE 5% 100 ML IV SCH ×2 (00:19→12:36)
[2018-12-29 00:26] VITALS: BP 118/70
[2018-12-29 03:14] LABS: MICROSCOPIC NOT IND
[2018-12-29 03:19] LABS: CULTURE INDICATED? NO
[2018-12-29 06:27] LABS: BASOPHILS # (AUTO) 0.04 x10^3/uL (0-0.1); BASOPHILS % (AUTO) 1 % (0-1); EOSINOPHILS # (AUTO) 0.12 x10^3/uL (0-0.4); EOSINOPHILS % (AUTO) 3 % (1-7); LYMPHOCYTES # (AUTO) 1.18 x10^3/uL (1-3.4); LYMPHOCYTES % (AUTO) 29 % (22-44); MD NO; MEAN CORPUSCULAR HGB CONC 33.7 g/dL (32.4-35.8); MEAN CORPUSCULAR VOLUME 97.9 fL (80-100); MEAN PLATELET VOLUME 7.9 fL (7.4-10.4); MONOCYTES # (AUTO) 0.32 x10^3/uL (0.2-0.8); MONOCYTES % (AUTO) 8 % (2-9); NEUTROPHILS # (AUTO) 2.37 x10^3/uL (1.8-6.8); NEUTROPHILS % (AUTO) 59 % (42-75); PLATELET COUNT 200 x10^3/uL (130-400); RED BLOOD COUNT 2.68 x10^6/uL (3.82-5.3); RED CELL DISTRIBUTION WIDTH 14.2 % (9.6-15.2)
[2018-12-29 06:32] VITALS: BP 122/78
[2018-12-29 06:39] LABS: ANION GAP 10 mmol/L (5-15); CALCIUM 10.6 mg/dL (8.5-10.1); CHLORIDE 106 mmol/L (98-107); CREATININE 0.66 mg/dL (0.55-1.02)
[2018-12-29] MEDS: INSULIN LISPRO 100 UNITS/ML, PEN SQ-INSULIN SCH ×4 (07:00→21:00)
[2018-12-29] MEDS: SODIUM CHLORIDE FLUSH 10ML SYR IVF SCH ×2 (09:00→21:28)
[2018-12-29] MEDS: LORazepam 0.5MG TABLET PO SCH ×2 (09:14→21:27)
[2018-12-29] MEDS: LACTOBACILLUS CHEW TABLET PO SCH ×3 (09:14→21:27)
[2018-12-29] MEDS: THIAMINE 100MG TABLET PO SCH (12:36)
[2018-12-29 13:24] VITALS: BP 133/86
[2018-12-29] MEDS ORDERED: DIPHENHYDRAMINE/ZINC CRM 2%, 30GM TP PRN (14:00)
[2018-12-29 19:23] VITALS: BP 127/84
[2018-12-30 00:21] VITALS: BP 121/75
[2018-12-30] MEDS: VALPROATE SODIUM 250 MG in DEXTROSE 5% 100 ML IV SCH ×2 (00:40→12:36)
[2018-12-30] MEDS: INSULIN LISPRO 100 UNITS/ML, PEN SQ-INSULIN SCH ×4 (07:00→20:42)
[2018-12-30 07:07] LABS: ANION GAP 8 mmol/L (5-15); CALCIUM 11.3 mg/dL (8.5-10.1); CHLORIDE 103 mmol/L (98-107)
[2018-12-30 07:08] LABS: CREATININE 0.74 mg/dL (0.55-1.02)
[2018-12-30 07:12] LABS: BASOPHILS # (AUTO) 0.03 x10^3/uL (0-0.1); BASOPHILS % (AUTO) 1 % (0-1); EOSINOPHILS # (AUTO) 0.12 x10^3/uL (0-0.4); EOSINOPHILS % (AUTO) 2 % (1-7); LYMPHOCYTES # (AUTO) 1.24 x10^3/uL (1-3.4); LYMPHOCYTES % (AUTO) 25 % (22-44); MD NO; MEAN CORPUSCULAR HEMOGLOBIN 33.3 pg (27.0-34.8); MEAN CORPUSCULAR HGB CONC 33.8 g/dL (32.4-35.8); MEAN CORPUSCULAR VOLUME 98.3 fL (80-100); MEAN PLATELET VOLUME 8.3 fL (7.4-10.4); MONOCYTES # (AUTO) 0.36 x10^3/uL (0.2-0.8); MONOCYTES % (AUTO) 7 % (2-9); NEUTROPHILS # (AUTO) 3.31 x10^3/uL (1.8-6.8); NEUTROPHILS % (AUTO) 65 % (42-75); PLATELET COUNT 213 x10^3/uL (130-400); RED BLOOD COUNT 2.95 x10^6/uL (3.82-5.3); RED CELL DISTRIBUTION WIDTH 13.7 % (9.6-15.2)
[2018-12-30 07:20] VITALS: BP 149/88
[2018-12-30] MEDS: LORazepam 0.5MG TABLET PO SCH ×2 (07:48→20:33)
[2018-12-30] MEDS: LACTOBACILLUS CHEW TABLET PO SCH ×3 (07:49→20:33)
[2018-12-30] MEDS: SODIUM CHLORIDE FLUSH 10ML SYR IVF SCH ×2 (07:49→20:33)
[2018-12-30] MEDS: THIAMINE 100MG TABLET PO SCH (12:36)
[2018-12-30 12:54] VITALS: BP 139/85
[2018-12-30] MEDS ORDERED: DOCUSATE 50 MG/5 ML, 10ML UDC PO PRN (17:00)
[2018-12-30 18:47] VITALS: BP 132/87
[2018-12-30] MEDS: DOCUSATE 100 MG CAPSULE PO PRN (23:44)
[2018-12-31 00:43] VITALS: BP 123/82
[2018-12-31] MEDS: VALPROATE SODIUM 250 MG in DEXTROSE 5% 100 ML IV SCH (00:48)
[2018-12-31 05:55] LABS: BASOPHILS # (AUTO) 0.04 x10^3/uL (0-0.1); BASOPHILS % (AUTO) 1 % (0-1); EOSINOPHILS # (AUTO) 0.16 x10^3/uL (0-0.4); EOSINOPHILS % (AUTO) 4 % (1-7); LYMPHOCYTES # (AUTO) 1.25 x10^3/uL (1-3.4); LYMPHOCYTES % (AUTO) 31 % (22-44); MD NO; MEAN CORPUSCULAR HEMOGLOBIN 33.1 pg (27.0-34.8); MEAN CORPUSCULAR HGB CONC 33.7 g/dL (32.4-35.8); MEAN CORPUSCULAR VOLUME 98.4 fL (80-100); MEAN PLATELET VOLUME 8.5 fL (7.4-10.4); MONOCYTES # (AUTO) 0.36 x10^3/uL (0.2-0.8); MONOCYTES % (AUTO) 9 % (2-9); NEUTROPHILS # (AUTO) 2.25 x10^3/uL (1.8-6.8); NEUTROPHILS % (AUTO) 55 % (42-75); PLATELET COUNT 228 x10^3/uL (130-400); RED BLOOD COUNT 2.92 x10^6/uL (3.82-5.3); RED CELL DISTRIBUTION WIDTH 14.1 % (9.6-15.2)
[2018-12-31 06:06] LABS: CHLORIDE 104 mmol/L (98-107)
[2018-12-31 06:07] LABS: ANION GAP 5 mmol/L (5-15); CALCIUM 10.9 mg/dL (8.5-10.1); CREATININE 0.81 mg/dL (0.55-1.02)
[2018-12-31 08:33] VITALS: BP 126/79
[2018-12-31] MEDS: LORazepam 0.5MG TABLET PO SCH ×2 (09:03→20:17)
[2018-12-31] MEDS: LACTOBACILLUS CHEW TABLET PO SCH ×3 (09:03→20:17)
[2018-12-31] MEDS: THIAMINE 100MG TABLET PO SCH (09:03)
[2018-12-31] MEDS: DOCUSATE 100 MG CAPSULE PO PRN (09:03)
[2018-12-31] MEDS: SODIUM CHLORIDE FLUSH 10ML SYR IVF SCH ×2 (09:04→20:17)
[2018-12-31 12:54] VITALS: BP 122/78
[2018-12-31 19:48] VITALS: BP 128/80
[2018-12-31] MEDS: DIVALPROEX 250 MG TABLET.DR PO SCH (20:17)
[2018-12-31] MEDS ORDERED: VALPROATE SODIUM 250 MG/5 ML ORAL SOLN PO SCH (21:00)
[2019-01-01 01:59] VITALS: BP 109/71
[2019-01-01 05:22] LABS: BASOPHILS # (AUTO) 0.04 x10^3/uL (0-0.1); BASOPHILS % (AUTO) 1 % (0-1); EOSINOPHILS # (AUTO) 0.16 x10^3/uL (0-0.4); EOSINOPHILS % (AUTO) 4 % (1-7); LYMPHOCYTES # (AUTO) 1.21 x10^3/uL (1-3.4); LYMPHOCYTES % (AUTO) 27 % (22-44); MD NO; MEAN CORPUSCULAR HEMOGLOBIN 32.1 pg (27.0-34.8); MEAN CORPUSCULAR HGB CONC 32.9 g/dL (32.4-35.8); MEAN CORPUSCULAR VOLUME 97.8 fL (80-100); MEAN PLATELET VOLUME 8.9 fL (7.4-10.4); MONOCYTES # (AUTO) 0.45 x10^3/uL (0.2-0.8); MONOCYTES % (AUTO) 10 % (2-9); NEUTROPHILS % (AUTO) 58 % (42-75); PLATELET COUNT 212 x10^3/uL (130-400); RED BLOOD COUNT 2.99 x10^6/uL (3.82-5.3); RED CELL DISTRIBUTION WIDTH 13.5 % (9.6-15.2)
[2019-01-01 07:15] VITALS: BP 112/76
[2019-01-01] MEDS: LORazepam 0.5MG TABLET PO SCH ×2 (08:56→20:49)
[2019-01-01] MEDS: DIVALPROEX 250 MG TABLET.DR PO SCH ×2 (08:56→20:49)
[2019-01-01] MEDS: SODIUM CHLORIDE FLUSH 10ML SYR IVF SCH ×2 (08:56→20:49)
[2019-01-01] MEDS: LACTOBACILLUS CHEW TABLET PO SCH ×3 (08:56→20:49)
[2019-01-01 12:57] VITALS: BP 118/82
[2019-01-01] MEDS: THIAMINE 100MG TABLET PO SCH (13:49)
[2019-01-01] MEDS ORDERED: INSTRUCTION SEE COMMENTS XX PRN (14:30)
[2019-01-01] MEDS ORDERED: LACTULOSE 20 GM/30 ML UDC PO PRN (14:30)
[2019-01-01] MEDS ORDERED: QUETIAPINE 25MG TABLET PO PRN (14:30)
[2019-01-01] MEDS ORDERED: PHARMACY INSTRUCTION MC PRN (14:30)
[2019-01-01] MEDS ORDERED: BISACODYL 10 MG SUPP PR PRN (14:30)
[2019-01-01 20:00] VITALS: BP 118/80
[2019-01-01] MEDS: MELATONIN 3 MG TABLET PO SCH (20:49)
[2019-01-02 06:11] LABS: BASOPHILS # (AUTO) 0.06 x10^3/uL (0-0.1); BASOPHILS % (AUTO) 2 % (0-1); EOSINOPHILS # (AUTO) 0.16 x10^3/uL (0-0.4); EOSINOPHILS % (AUTO) 4 % (1-7); LYMPHOCYTES # (AUTO) 1.19 x10^3/uL (1-3.4); LYMPHOCYTES % (AUTO) 31 % (22-44); MD NO; MEAN CORPUSCULAR HEMOGLOBIN 32.2 pg (27.0-34.8); MEAN CORPUSCULAR HGB CONC 32.9 g/dL (32.4-35.8); MEAN CORPUSCULAR VOLUME 97.9 fL (80-100); MONOCYTES # (AUTO) 0.36 x10^3/uL (0.2-0.8); MONOCYTES % (AUTO) 10 % (2-9); NEUTROPHILS # (AUTO) 2.04 x10^3/uL (1.8-6.8); NEUTROPHILS % (AUTO) 53 % (42-75); PLATELET COUNT 205 x10^3/uL (130-400); RED BLOOD COUNT 2.96 x10^6/uL (3.82-5.3); RED CELL DISTRIBUTION WIDTH 13.5 % (9.6-15.2)
[2019-01-02 07:25] VITALS: BP 141/97
[2019-01-02] MEDS: LACTULOSE 20 GM/30 ML UDC PO SCH (08:14)
[2019-01-02] MEDS: DIVALPROEX 250 MG TABLET.DR PO SCH ×2 (08:16→21:10)
[2019-01-02] MEDS: LORazepam 0.5MG TABLET PO SCH ×3 (08:16→21:10)
[2019-01-02] MEDS: LACTOBACILLUS CHEW TABLET PO SCH ×3 (08:17→21:10)
[2019-01-02] MEDS: SODIUM CHLORIDE FLUSH 10ML SYR IVF SCH ×2 (09:00→21:10)
[2019-01-02 11:17] LABS: CHLORIDE 105 mmol/L (98-107)
[2019-01-02 12:41] LABS: ALANINE AMINOTRANSFERASE 26 U/L (12-78); ALBUMIN 3.2 g/dL (3.4-5.0); BILIRUBIN,TOTAL 0.8 mg/dL (0.2-1.0); CALCIUM 11.6 mg/dL (8.5-10.1); CREATININE 0.92 mg/dL (0.55-1.02); TOTAL PROTEIN 7.2 g/dL (6.4-8.2)
[2019-01-02 13:37] LABS: ALKALINE PHOSPHATASE 101 U/L (45-117); ANION GAP 7 mmol/L (5-15)
[2019-01-02 14:40] VITALS: BP 128/60
[2019-01-02] MEDS: THIAMINE 100MG TABLET PO SCH (16:42)
[2019-01-02 20:42] VITALS: BP 99/68
[2019-01-02] MEDS: MELATONIN 3 MG TABLET PO SCH (21:10)
[2019-01-03 05:11] LABS: BASOPHILS # (AUTO) 0.03 x10^3/uL (0-0.1); BASOPHILS % (AUTO) 1 % (0-1); EOSINOPHILS % (AUTO) 5 % (1-7); LYMPHOCYTES # (AUTO) 1.36 x10^3/uL (1-3.4); LYMPHOCYTES % (AUTO) 34 % (22-44); MD NO; MEAN CORPUSCULAR HEMOGLOBIN 32.6 pg (27.0-34.8); MEAN CORPUSCULAR HGB CONC 33.4 g/dL (32.4-35.8); MEAN CORPUSCULAR VOLUME 97.4 fL (80-100); MEAN PLATELET VOLUME 8.5 fL (7.4-10.4); MONOCYTES # (AUTO) 0.39 x10^3/uL (0.2-0.8); MONOCYTES % (AUTO) 10 % (2-9); NEUTROPHILS # (AUTO) 2.06 x10^3/uL (1.8-6.8); NEUTROPHILS % (AUTO) 51 % (42-75); PLATELET COUNT 191 x10^3/uL (130-400); RED BLOOD COUNT 3.06 x10^6/uL (3.82-5.3); RED CELL DISTRIBUTION WIDTH 13.6 % (9.6-15.2)
[2019-01-03 07:47] LABS: ALBUMIN 2.7 g/dL (3.4-5.0); ANION GAP 7 mmol/L (5-15); CALCIUM 11.6 mg/dL (8.5-10.1); CHLORIDE 107 mmol/L (98-107); CREATININE 0.79 mg/dL (0.55-1.02)
[2019-01-03 07:59] VITALS: BP 120/83
[2019-01-03] MEDS: LACTULOSE 20 GM/30 ML UDC PO SCH (08:42)
[2019-01-03] MEDS: DIVALPROEX 250 MG TABLET.DR PO SCH ×2 (08:57→20:13)
[2019-01-03] MEDS: LACTOBACILLUS CHEW TABLET PO SCH ×3 (08:57→20:13)
[2019-01-03] MEDS: LORazepam 0.5MG TABLET PO SCH ×3 (08:58→20:13)
[2019-01-03] MEDS: SODIUM CHLORIDE FLUSH 10ML SYR IVF SCH ×2 (08:58→20:14)
[2019-01-03] MEDS: THIAMINE 100MG TABLET PO SCH (13:30)
[2019-01-03 13:55] VITALS: BP 115/78
[2019-01-03] MEDS: SODIUM CHLORIDE 0.9% 1,000 ML IV SCH ×2 (14:28→22:01)
[2019-01-03 19:18] LABS: ALBUMIN 3.4 g/dL (3.4-5.0); ANION GAP 8 mmol/L (5-15); CALCIUM 11.5 mg/dL (8.5-10.1); CHLORIDE 107 mmol/L (98-107); CREATININE 0.78 mg/dL (0.55-1.02)
[2019-01-03] MEDS: ACETAMINOPHEN 325 MG TABLET PO PRN (19:27)
[2019-01-03 19:52] VITALS: BP 122/87
[2019-01-03] MEDS: MELATONIN 3 MG TABLET PO SCH (20:14)
[2019-01-04 01:14] VITALS: BP 131/83
[2019-01-04] MEDS: ACETAMINOPHEN 325 MG TABLET PO PRN ×2 (02:22→12:05)
[2019-01-04] MEDS ORDERED: GABAPENTIN 300 MG CAPSULE PO ONE (02:30)
[2019-01-04 04:30] LABS: BASOPHILS # (AUTO) 0.02 x10^3/uL (0-0.1); BASOPHILS % (AUTO) 0 % (0-1); EOSINOPHILS % (AUTO) 2 % (1-7); LYMPHOCYTES # (AUTO) 0.86 x10^3/uL (1-3.4); LYMPHOCYTES % (AUTO) 15 % (22-44); MD NO; MEAN CORPUSCULAR HEMOGLOBIN 32.6 pg (27.0-34.8); MEAN CORPUSCULAR HGB CONC 33.5 g/dL (32.4-35.8); MEAN CORPUSCULAR VOLUME 97.3 fL (80-100); MEAN PLATELET VOLUME 9.2 fL (7.4-10.4); MONOCYTES # (AUTO) 0.42 x10^3/uL (0.2-0.8); MONOCYTES % (AUTO) 7 % (2-9); NEUTROPHILS # (AUTO) 4.43 x10^3/uL (1.8-6.8); NEUTROPHILS % (AUTO) 76 % (42-75); PLATELET COUNT 194 x10^3/uL (130-400); RED BLOOD COUNT 3.04 x10^6/uL (3.82-5.3); RED CELL DISTRIBUTION WIDTH 13.5 % (9.6-15.2)
[2019-01-04 04:41] LABS: CHLORIDE 109 mmol/L (98-107)
[2019-01-04 04:44] LABS: ANION GAP 7 mmol/L (5-15); CALCIUM 10.9 mg/dL (8.5-10.1); CREATININE 0.71 mg/dL (0.55-1.02)
[2019-01-04] MEDS: SODIUM CHLORIDE 0.9% 1,000 ML IV SCH ×3 (05:54→22:00)
[2019-01-04] MEDS: LACTULOSE 20 GM/30 ML UDC PO SCH (09:00)
[2019-01-04] MEDS: SODIUM CHLORIDE FLUSH 10ML SYR IVF SCH ×2 (09:00→20:08)
[2019-01-04] MEDS: LACTOBACILLUS CHEW TABLET PO SCH ×3 (10:08→20:08)
[2019-01-04] MEDS: DIVALPROEX 250 MG TABLET.DR PO SCH ×2 (10:09→20:08)
[2019-01-04] MEDS: LORazepam 0.5MG TABLET PO SCH ×3 (10:09→20:08)
[2019-01-04 11:03] VITALS: BP 127/87
[2019-01-04] MEDS: THIAMINE 100MG TABLET PO SCH (12:05)
[2019-01-04 13:50] VITALS: BP 114/78
[2019-01-04 18:26] VITALS: BP 119/81
[2019-01-04] MEDS: MELATONIN 3 MG TABLET PO SCH (20:08)
[2019-01-05] MEDS: ZIPRASIDONE 20 MG INJ IM PRN (06:20)
[2019-01-05] MEDS: LACTULOSE 20 GM/30 ML UDC PO SCH (08:42)
[2019-01-05] MEDS: SODIUM CHLORIDE FLUSH 10ML SYR IVF SCH ×2 (09:00→21:00)
[2019-01-05] MEDS: DIVALPROEX 250 MG TABLET.DR PO SCH (09:05)
[2019-01-05] MEDS: LORazepam 0.5MG TABLET PO SCH ×2 (09:05→21:00)
[2019-01-05] MEDS: LACTOBACILLUS CHEW TABLET PO SCH ×3 (09:05→21:00)
[2019-01-05 09:53] LABS: MICROSCOPIC NOT IND
[2019-01-05 09:57] LABS: CULTURE INDICATED? NO
[2019-01-05 12:56] LABS: ALBUMIN 2.8 g/dL (3.4-5.0); ANION GAP 6 mmol/L (5-15); CALCIUM 10.5 mg/dL (8.5-10.1); CHLORIDE 110 mmol/L (98-107); CREATININE 0.75 mg/dL (0.55-1.02)
[2019-01-05 13:00] VITALS: BP 134/92
[2019-01-05] MEDS: THIAMINE 100MG TABLET PO SCH (13:30)
[2019-01-05] MEDS ORDERED: THIA100T67 PO (18:40)
[2019-01-05] MEDS ORDERED: DIVA250T PO (18:40)
[2019-01-05] MEDS ORDERED: DIVA500T4 PO (18:40)
[2019-01-05] MEDS ORDERED: LORA-445 PO (18:40)
[2019-01-05 19:00] LABS: BASOPHILS # (AUTO) 0.02 x10^3/uL (0-0.1); BASOPHILS % (AUTO) 1 % (0-1); EOSINOPHILS % (AUTO) 2 % (1-7); LYMPHOCYTES # (AUTO) 1.02 x10^3/uL (1-3.4); LYMPHOCYTES % (AUTO) 23 % (22-44); MD NO; MEAN CORPUSCULAR HEMOGLOBIN 32.3 pg (27.0-34.8); MEAN CORPUSCULAR HGB CONC 33.4 g/dL (32.4-35.8); MEAN CORPUSCULAR VOLUME 96.5 fL (80-100); MEAN PLATELET VOLUME 8.9 fL (7.4-10.4); MONOCYTES # (AUTO) 0.58 x10^3/uL (0.2-0.8); MONOCYTES % (AUTO) 13 % (2-9); NEUTROPHILS # (AUTO) 2.71 x10^3/uL (1.8-6.8); NEUTROPHILS % (AUTO) 61 % (42-75); PLATELET COUNT 160 x10^3/uL (130-400); RED BLOOD COUNT 3.02 x10^6/uL (3.82-5.3); RED CELL DISTRIBUTION WIDTH 13.3 % (9.6-15.2)
[2019-01-05 19:05] VITALS: BP 144/78
[2019-01-05] MEDS: MELATONIN 3 MG TABLET PO SCH (21:00)
[2019-01-05] MEDS: DIVALPROEX 500 MG TAB.ER.24H PO SCH (21:00)
[2019-01-06 01:34] VITALS: BP 118/80
[2019-01-06 08:37] VITALS: BP 138/66
[2019-01-06 08:40] LABS: BASOPHILS # (AUTO) 0.03 x10^3/uL (0-0.1); BASOPHILS % (AUTO) 1 % (0-1); EOSINOPHILS # (AUTO) 0.09 x10^3/uL (0-0.4); EOSINOPHILS % (AUTO) 2 % (1-7); LYMPHOCYTES # (AUTO) 1.04 x10^3/uL (1-3.4); LYMPHOCYTES % (AUTO) 27 % (22-44); MD NO; MEAN CORPUSCULAR HGB CONC 32.3 g/dL (32.4-35.8); MEAN PLATELET VOLUME 9.2 fL (7.4-10.4); MONOCYTES # (AUTO) 0.46 x10^3/uL (0.2-0.8); MONOCYTES % (AUTO) 12 % (2-9); NEUTROPHILS # (AUTO) 2.23 x10^3/uL (1.8-6.8); NEUTROPHILS % (AUTO) 58 % (42-75); PLATELET COUNT 176 x10^3/uL (130-400); RED BLOOD COUNT 2.95 x10^6/uL (3.82-5.3); RED CELL DISTRIBUTION WIDTH 13.5 % (9.6-15.2)
[2019-01-06] MEDS: SODIUM CHLORIDE FLUSH 10ML SYR IVF SCH (08:40)
[2019-01-06] MEDS: LACTULOSE 20 GM/30 ML UDC PO SCH (08:40)
[2019-01-06] MEDS ORDERED: DIVALPROEX 250 MG TAB.ER.24H PO SCH (09:00)
== END 2019-01-06 13:13 | DRG 61 ==
LOC: ED 15:23 → EDIP 17:06 → 4WST 18:27 → CCU 19:43 → 4WST 12-20 13:26 → CCU 12-24 12:21 → 4WST 12-25 17:31 → 4EST 12-26 23:29
PROVIDERS: ADMIT Hospitalist; ATTEND Hospitalist
PROC: 5A1945Z Respiratory Ventilation, 24-96 Consecutive Hours (ICD-10-PCS; 2018-12-15)
PROC: 0BH17EZ Insertion of Endotracheal Airway into Trachea, Via Natural or Artificial Opening (ICD-10-PCS; 2018-12-15)
PROC: 02HV33Z Insertion of Infusion Device into Superior Vena Cava, Percutaneous Approach (ICD-10-PCS; 2018-12-15)
PROC: B548ZZA Ultrasonography of Superior Vena Cava, Guidance (ICD-10-PCS; 2018-12-15)
PROC: 0T9B70Z Drainage of Bladder with Drainage Device, Via Natural or Artificial Opening (ICD-10-PCS; 2018-12-15)
PROC: 03HY32Z Insertion of Monitoring Device into Upper Artery, Percutaneous Approach (ICD-10-PCS; 2018-12-15)
PROC: 009U3ZX Drainage of Spinal Canal, Percutaneous Approach, Diagnostic (ICD-10-PCS; 2018-12-15)
PROC: 3E03317 Introduction of Other Thrombolytic into Peripheral Vein, Percutaneous Approach (ICD-10-PCS; principal; 2018-12-24)
DX: I63.9 Cerebral infarction, unspecified (principal); J96.01 Acute respiratory failure with hypoxia; E87.2 Acidosis; F10.239 Alcohol dependence with withdrawal, unspecified; N17.9 Acute kidney failure, unspecified; N39.0 Urinary tract infection, site not specified; Z99.11 Dependence on respirator [ventilator] status; B96.20 Unspecified Escherichia coli [E. coli] as the cause of diseases classified elsewhere; D64.9 Anemia, unspecified; Z79.899 Other long term (current) drug therapy; G40.401 Other generalized epilepsy and epileptic syndromes, not intractable, with status epilepticus; E03.9 Hypothyroidism, unspecified; E11.65 Type 2 diabetes mellitus with hyperglycemia; E83.52 Hypercalcemia; E87.6 Hypokalemia; E87.8 Other disorders of electrolyte and fluid balance, not elsewhere classified; G47.00 Insomnia, unspecified; H53.40 Unspecified visual field defects; I10 Essential (primary) hypertension; I35.8 Other nonrheumatic aortic valve disorders; I95.81 Postprocedural hypotension; K44.9 Diaphragmatic hernia without obstruction or gangrene; Z78.1 Physical restraint status; Z81.1 Family history of alcohol abuse and dependence; Z82.49 Family history of ischemic heart disease and other diseases of the circulatory system; Z83.3 Family history of diabetes mellitus
CPT/HCPCS: 31500; 36415; 36600; 83036; 86592; 87806; 99285; J3490; J7620; 70450; 70551; 70553; 71045; 80048; 80053; 80061; 80074; 80164; 80202; 80307; 80329; 81001; 81003; 82040; 82140; 82306; 82330; 82397; 82607; 82803; 82945; 82962; 83540; 83550; 83605; 83735; 83873; 83970; 84100; 84157; 84439; 84443; 84478; 84481; 84484; 85025; 85610; 85730; 87040; 87070; 87077; 87081; 87086; 87102; 87116; 87186; 87205; 87206; 87210; 87252; 87255; 87324; 87491; 87591; 87899; 89051; 93005; 93306; 93880; 94002; 94003; 94150; 94640; 95812; 95816; 95951; 96374; 96375; A9585; G0378; J0133; J0290; J0696; J1100; J1165; J1644; J1953; J2250; J2704; J2997; J3010; J3360; J3370; J3411; J3475; J3480; J3486; 92523-GN; G0475; G0480; J0330; J0360; J1815; J2060; J7030; J7040; J7050

== ENCOUNTER 2019-01-09 21:26 | Inpatient (IN) | payer MEDICAID ==
[~2019-01-09] VITALS: Ht 162.6 cm; Wt 60.3 kg
[~2019-01-09 21:26] MED LIST changes: +CITA20TA6 PO; +CITALOPRAM PO; +DIVA250T PO; +DIVA500T4 PO; -ETOMIDATE 40 MG/20 ML ONE; +LISI-420 PO; +LORA-445 PO; -MIDAZOLAM 1 MG/ML, 5ML ONE; -PROPOFOL 10 MG/ML, 100ML IV ONE; -SUCCINYLCHOLINE 20 MG/ML, 10ML ONE; +THIA100T67 PO; -VECURONIUM 10 MG ONE
--- NOTE | 2019-01-09 21:36 | NUR ---
PRESENTS VIA [facility] FROM [facility] ([facility]) FOR ALOC. AFEBRILE, FSBS 157, HR 120. ONLY ORIENTED TO SELF (BASELINE PER RECORDS). IN REHAB FOR CVA REHAB & ETOH/ATIVAN DETOX
--- NOTE | 2019-01-09 21:45 | NUR ---
Bedside SBAR report received from RNTrent. Pt resting on gurney, talking about breakfast foods and AAO to self and place.
--- NOTE | 2019-01-09 22:10 | NUR ---
Lab at bedside.
[2019-01-09 22:20] LABS: BASOPHILS # (AUTO) 0.03 x10^3/uL (0-0.1); BASOPHILS % (AUTO) 0 % (0-1); EOSINOPHILS # (AUTO) 0.04 x10^3/uL (0-0.4); EOSINOPHILS % (AUTO) 1 % (1-7); LYMPHOCYTES % (AUTO) 20 % (22-44); MD NO; MEAN CORPUSCULAR HEMOGLOBIN 31.1 pg (27.0-34.8); MEAN CORPUSCULAR HGB CONC 32.9 g/dL (32.4-35.8); MEAN CORPUSCULAR VOLUME 94.4 fL (80-100); MEAN PLATELET VOLUME 8.1 fL (7.4-10.4); MONOCYTES # (AUTO) 0.76 x10^3/uL (0.2-0.8); MONOCYTES % (AUTO) 12 % (2-9); NEUTROPHILS # (AUTO) 4.39 x10^3/uL (1.8-6.8); NEUTROPHILS % (AUTO) 67 % (42-75); PLATELET COUNT 261 x10^3/uL (130-400); RED BLOOD COUNT 3.33 x10^6/uL (3.82-5.3); RED CELL DISTRIBUTION WIDTH 13.8 % (9.6-15.2)
[2019-01-09 22:25] LABS: ANION GAP 9 mmol/L (5-15); CALCIUM 11.3 mg/dL (8.5-10.1); CHLORIDE 109 mmol/L (98-107); CREATININE 0.94 mg/dL (0.55-1.02)
--- NOTE | 2019-01-09 22:45 | NUR ---
Dr. Madison at bedside to discuss ED findings and POC.
[2019-01-09] MEDS ORDERED: POLYETHYLENE GLYCOL 17 GM PACKET PO PRN (23:00)
[2019-01-09] MEDS ORDERED: hydrALAzine 20 MG/ML, 1ML IVPush PRN (23:00)
[2019-01-09] MEDS ORDERED: ONDANSETRON 2MG/ML, 2ML IVPush PRN (23:00)
--- NOTE | 2019-01-09 23:00 | NUR ---
Dr. Ramirez at bedside to evaluate pt for admission.
--- NOTE | 2019-01-09 23:25 | NUR ---
Telephone SBAR report called to Mekhi HARTLEY. Pt made aware of new room assignment.
--- NOTE | 2019-01-10 00:15 | NUR ---
MULTIPLE ATTEMPTS TO START IV. IV ACCESS ESTABLISHED AT THIS TIME. PT AWARE OF PLAN TO TRANSFER TO FLOOR.
[2019-01-10 01:00] VITALS: BP 120/84
[2019-01-10] MEDS: SODIUM CHLORIDE 0.9% 1,000 ML IV SCH ×3 (01:36→17:55)
[2019-01-10] MEDS: DIVALPROEX 500 MG TAB.ER.24H PO SCH ×2 (02:00→21:16)
[2019-01-10] MEDS: LORazepam 0.5MG TABLET PO SCH ×3 (02:00→21:16)
[2019-01-10 05:06] LABS: ANION GAP 8 mmol/L (5-15); CALCIUM 10.7 mg/dL (8.5-10.1); CHLORIDE 110 mmol/L (98-107); CREATININE 0.83 mg/dL (0.55-1.02)
[2019-01-10] MEDS ORDERED: MAGNESIUM SULFATE PMX 4GM/100M 100 ML IV ONE (06:30)
[2019-01-10 06:53] VITALS: BP 102/69
[2019-01-10] MEDS: THIAMINE 100MG TABLET PO SCH (08:38)
[2019-01-10] MEDS: LISINOPRIL 20 MG TABLET PO SCH (08:38)
[2019-01-10] MEDS: DIVALPROEX 250 MG TAB.ER.24H PO SCH (08:38)
[2019-01-10] MEDS: POTASSIUM CHLORIDE 20 MEQ TAB.ER.PRT PO SCH ×2 (08:38→17:02)
[2019-01-10] MEDS: ENOXAPARIN 40 MG/0.4 ML SQ SCH (08:39)
[2019-01-10] MEDS: ACETAMINOPHEN 325 MG TABLET PO PRN (12:03)
[2019-01-10 13:00] VITALS: BP 119/85
[2019-01-10 19:32] VITALS: BP 100/66
[2019-01-11 01:23] VITALS: BP 111/74
[2019-01-11] MEDS: SODIUM CHLORIDE 0.9% 1,000 ML IV SCH ×3 (01:35→21:48)
[2019-01-11] MEDS: ACETAMINOPHEN 325 MG TABLET PO PRN (01:41)
[2019-01-11 06:48] VITALS: BP 111/76
[2019-01-11] MEDS: THIAMINE 100MG TABLET PO SCH (10:32)
[2019-01-11] MEDS: LORazepam 0.5MG TABLET PO SCH ×2 (10:32→21:49)
[2019-01-11] MEDS: LISINOPRIL 20 MG TABLET PO SCH (10:33)
[2019-01-11] MEDS: ENOXAPARIN 40 MG/0.4 ML SQ SCH (10:34)
[2019-01-11] MEDS: DIVALPROEX 250 MG TAB.ER.24H PO SCH (10:36)
[2019-01-11 17:36] VITALS: BP 127/80
[2019-01-11 19:34] VITALS: BP 138/95
[2019-01-11] MEDS: DIVALPROEX 500 MG TAB.ER.24H PO SCH (21:00)
[2019-01-12 03:03] VITALS: BP 158/94
[2019-01-12] MEDS: SODIUM CHLORIDE 0.9% 1,000 ML IV SCH ×2 (06:12→18:14)
[2019-01-12 07:09] VITALS: BP 145/81
[2019-01-12 08:28] LABS: CLOSTRIDIUM DIFFICILE ANTIGEN POSITIVE; CLOSTRIDIUM DIFFICILE TOXIN NEGATIVE (Negative)
[2019-01-12] MEDS: ENOXAPARIN 40 MG/0.4 ML SQ SCH (09:00)
[2019-01-12] MEDS ORDERED: POTASSIUM CHLORIDE 20 MEQ TAB.ER.PRT PO ONE (13:00)
[2019-01-12 13:30] VITALS: BP 138/81
[2019-01-12] MEDS: LORazepam 0.5MG TABLET PO SCH ×2 (18:15→21:00)
[2019-01-12] MEDS: DIVALPROEX 250 MG TAB.ER.24H PO SCH (18:16)
[2019-01-12] MEDS: THIAMINE 100MG TABLET PO SCH (18:17)
[2019-01-12] MEDS: LISINOPRIL 20 MG TABLET PO SCH (18:17)
[2019-01-12 20:01] VITALS: BP 115/76
[2019-01-12] MEDS: DIVALPROEX 500 MG TAB.ER.24H PO SCH (21:00)
[2019-01-13 01:37] VITALS: BP 116/79
[2019-01-13 04:58] LABS: ANION GAP 7 mmol/L (5-15); CALCIUM 9.6 mg/dL (8.5-10.1); CHLORIDE 113 mmol/L (98-107)
[2019-01-13 05:00] LABS: BASOPHILS # (AUTO) 0.06 x10^3/uL (0-0.1); BASOPHILS % (AUTO) 2 % (0-1); CREATININE 0.63 mg/dL (0.55-1.02); EOSINOPHILS # (AUTO) 0.18 x10^3/uL (0-0.4); EOSINOPHILS % (AUTO) 5 % (1-7); LYMPHOCYTES # (AUTO) 1.23 x10^3/uL (1-3.4); LYMPHOCYTES % (AUTO) 35 % (22-44); MD NO; MEAN CORPUSCULAR HEMOGLOBIN 31.6 pg (27.0-34.8); MEAN CORPUSCULAR HGB CONC 33.8 g/dL (32.4-35.8); MEAN CORPUSCULAR VOLUME 93.5 fL (80-100); MEAN PLATELET VOLUME 8.3 fL (7.4-10.4); MONOCYTES # (AUTO) 0.35 x10^3/uL (0.2-0.8); MONOCYTES % (AUTO) 10 % (2-9); NEUTROPHILS # (AUTO) 1.73 x10^3/uL (1.8-6.8); NEUTROPHILS % (AUTO) 49 % (42-75); PLATELET COUNT 170 x10^3/uL (130-400); RED CELL DISTRIBUTION WIDTH 13.3 % (9.6-15.2)
[2019-01-13] MEDS: THIAMINE 100MG TABLET PO SCH (07:29)
[2019-01-13] MEDS: DIVALPROEX 250 MG TAB.ER.24H PO SCH (07:29)
[2019-01-13] MEDS: LISINOPRIL 20 MG TABLET PO SCH (07:29)
[2019-01-13] MEDS: SODIUM CHLORIDE 0.9% 1,000 ML IV SCH ×2 (07:29→12:59)
[2019-01-13] MEDS: LORazepam 0.5MG TABLET PO SCH ×2 (07:29→20:40)
[2019-01-13] MEDS: ENOXAPARIN 40 MG/0.4 ML SQ SCH (07:29)
[2019-01-13 09:18] VITALS: BP 113/79
[2019-01-13 11:27] LABS: MICROSCOPIC NOT IND
[2019-01-13 11:28] LABS: CULTURE INDICATED? NO
[2019-01-13 12:08] VITALS: BP 123/81
[2019-01-13] MEDS ORDERED: MAGNESIUM SULFATE PMX 4GM/100M 100 ML IV ONE (15:00)
[2019-01-13] MEDS ORDERED: MAGNESIUM SULFATE 4 GM in SODIUM CHLORIDE 0.9% 100 ML IV ONE (15:00)
[2019-01-13 19:58] VITALS: BP 114/77
[2019-01-13] MEDS: DIVALPROEX 500 MG TAB.ER.24H PO SCH (20:40)
[2019-01-14 01:29] VITALS: BP 110/72
[2019-01-14] MEDS: SODIUM CHLORIDE 0.9% 1,000 ML IV SCH (02:44)
[2019-01-14 05:53] LABS: ANION GAP 8 mmol/L (5-15); CHLORIDE 113 mmol/L (98-107)
[2019-01-14 05:55] LABS: CREATININE 0.68 mg/dL (0.55-1.02)
[2019-01-14 06:39] LABS: MD YES; MEAN CORPUSCULAR HEMOGLOBIN 32.2 pg (27.0-34.8); MEAN CORPUSCULAR HGB CONC 33.5 g/dL (32.4-35.8); MEAN CORPUSCULAR VOLUME 95.9 fL (80-100); MEAN PLATELET VOLUME 10.1 fL (7.4-10.4); PLATELET COUNT 95 x10^3/uL (130-400); RED BLOOD COUNT 2.59 x10^6/uL (3.82-5.3); RED CELL DISTRIBUTION WIDTH 13.5 % (9.6-15.2)
[2019-01-14 06:41] LABS: BAND#(MANUAL) 0.04 x10^3/uL; BANDS%(MANUAL) 1 % (0-7); EOS#(MANUAL) 0.13 x10^3/uL (0.0-0.4); EOS% (MANUAL) 3 % (1-7); LYMPH#(MANUAL) 1.22 x10^3/uL (1-3.4); LYMPHS% (MANUAL) 29 % (22-44); METAMYELOCYTES# (MANUAL) 0.04 x10^3/uL (0-0); METAMYELOCYTES% (MANUAL) 1 % (0-1); MONOS% (MANUAL) 12 % (2-9); SEG#(MANUAL) 2.27 x10^3/uL (1.8-6.8); SEGS% (MANUAL) 54 % (42-75)
[2019-01-14 06:42] LABS: ANISOCYTOSIS 1+; OVALOCYTES 1+
[2019-01-14 06:43] LABS: <PLATELET ESTIMATE> DECREASED; LARGE PLATELETS 1+
[2019-01-14 07:11] VITALS: BP 113/78
[2019-01-14] MEDS: THIAMINE 100MG TABLET PO SCH (08:37)
[2019-01-14] MEDS: DIVALPROEX 250 MG TAB.ER.24H PO SCH (08:37)
[2019-01-14] MEDS: ENOXAPARIN 40 MG/0.4 ML SQ SCH (08:37)
[2019-01-14] MEDS: LISINOPRIL 20 MG TABLET PO SCH (08:38)
[2019-01-14] MEDS: LORazepam 0.5MG TABLET PO SCH ×2 (08:38→19:58)
[2019-01-14 14:31] VITALS: BP 110/74
[2019-01-14 19:14] VITALS: BP 114/67
[2019-01-14] MEDS: DIVALPROEX 500 MG TAB.ER.24H PO SCH (19:57)
[2019-01-15 01:18] VITALS: BP 117/82
[2019-01-15 08:20] VITALS: BP 121/78
[2019-01-15 08:29] VITALS: BP 124/80
[2019-01-15] MEDS: DIVALPROEX 250 MG TAB.ER.24H PO SCH (08:31)
[2019-01-15] MEDS: LORazepam 0.5MG TABLET PO SCH (08:31)
[2019-01-15] MEDS: LISINOPRIL 20 MG TABLET PO SCH (08:31)
[2019-01-15] MEDS: THIAMINE 100MG TABLET PO SCH (08:32)
[2019-01-15] MEDS: ENOXAPARIN 40 MG/0.4 ML SQ SCH (08:32)
[2019-01-15] MEDS: ACETAMINOPHEN 325 MG TABLET PO PRN (11:03)
[2019-01-15 13:55] VITALS: BP 114/78
[2019-01-15 14:07] VITALS: BP 114/78
[2019-01-15 20:00] VITALS: BP 126/79
[2019-01-15] MEDS: DIVALPROEX 500 MG TAB.ER.24H PO SCH (20:25)
[2019-01-15] MEDS ORDERED: LORazepam 0.5MG TABLET PO SCH (21:00)
[2019-01-16 02:00] VITALS: BP 109/72
[2019-01-16 08:00] VITALS: BP 115/75
[2019-01-16] MEDS: LISINOPRIL 20 MG TABLET PO SCH (09:30)
[2019-01-16] MEDS: THIAMINE 100MG TABLET PO SCH (09:30)
[2019-01-16] MEDS: DIVALPROEX 250 MG TAB.ER.24H PO SCH (09:30)
[2019-01-16] MEDS: ENOXAPARIN 40 MG/0.4 ML SQ SCH (09:31)
[2019-01-16 12:50] VITALS: BP 118/80
[2019-01-16] MEDS ORDERED: LORA-445 PO (13:47)
== END 2019-01-16 18:04 | DRG 72 ==
LOC: ED 22:19 → SUATTDRO 22:57 → EDIP 23:00 → 3NW 01-10 00:50 → 4WST 01-14 17:39
PROVIDERS: ADMIT Hospitalist; ATTEND Hospitalist
DX: G93.40 Encephalopathy, unspecified (principal); E11.9 Type 2 diabetes mellitus without complications; E83.42 Hypomagnesemia; E83.52 Hypercalcemia; E87.6 Hypokalemia; F32.9 Major depressive disorder, single episode, unspecified; B96.89 Other specified bacterial agents as the cause of diseases classified elsewhere; G40.909 Epilepsy, unspecified, not intractable, without status epilepticus; I10 Essential (primary) hypertension; Z86.73 Personal history of transient ischemic attack (TIA), and cerebral infarction without residual deficits; Z87.891 Personal history of nicotine dependence; Z79.899 Other long term (current) drug therapy
CPT/HCPCS: 36415; 80048; 81003; 82330; 83735; 83970; 84100; 85025; 87324; 99285; G0378; J1650; 92522-GN; J3475; J7030

== ENCOUNTER 2019-01-26 12:24 | Inpatient (IN) | payer MEDICAID ==
[~2019-01-26] VITALS: Ht 167.6 cm; Wt 59.5 kg
--- NOTE | 2019-01-26 12:35 | NUR ---
JACQUES CANO from [facility] for refusing to eat/drink x several days, refusing to take meds, increasing agitation. Pt is A&O to self only as her baseline. Pt is non-verbal on arrival to ED, cooperative with staff intervention of putting hospital gown on, etc. Pt positioned for comfort in bed with warm blanket, continuous heart, oxygen and BP monitors applied, all safety measures observed.
--- NOTE | 2019-01-26 13:28 | NUR ---
Pt straight cathed for urine sample per Dr. Pastrana. PIV inserted per order and labs drawn. Pt upset, crying. Verbal reassurance provided.
[2019-01-26] MEDS ORDERED: LABETALOL 5MG/ML, 20ML IVPush ONE (13:30)
[2019-01-26 13:52] LABS: CULTURE INDICATED? YES; MICROSCOPIC INDICATED
[2019-01-26 13:55] LABS: ALBUMIN 3.9 g/dL (3.4-5.0); ANION GAP 15 mmol/L (5-15); CHLORIDE 110 mmol/L (98-107)
[2019-01-26 13:58] LABS: ALKALINE PHOSPHATASE 102 U/L (45-117); BILIRUBIN,TOTAL 1.1 mg/dL (0.2-1.0); CREATININE 1.24 mg/dL (0.55-1.02); TOTAL PROTEIN 8.2 g/dL (6.4-8.2); TROPONIN I < 0.015 ng/mL (0.000-0.045)
[2019-01-26] MEDS ORDERED: CEFTRIAXONE PMX 1GM/50ML 50 ML IV ONE (14:00)
[2019-01-26 14:04] LABS: ALANINE AMINOTRANSFERASE 29 U/L (12-78)
[2019-01-26 14:07] LABS: CALCIUM 14.6 mg/dL (8.5-10.1)
[2019-01-26] MEDS ORDERED: POTASSIUM CHLORIDE 40 MEQ in SODIUM CHLORIDE 0.9% 500 ML IV ONE (14:30)
[2019-01-26] MEDS ORDERED: SODIUM CHLORIDE 0.9% 1,000ML IVBOLUS ONE (14:30)
[2019-01-26] MEDS ORDERED: FUROSEMIDE 40 MG/4 ML IV ONE (14:30)
--- NOTE | 2019-01-26 14:30 | NUR ---
PT REPORT FROM NAEEM KILLIAN. PT CARE TO BE ASSUMED. PT LYING QUIETLY ON BED, SIDE RAILS UP X2.
[2019-01-26 14:44] LABS: BASOPHILS % (AUTO) 0 % (0-1); EOSINOPHILS # (AUTO) 0.05 x10^3/uL (0-0.4); EOSINOPHILS % (AUTO) 1 % (1-7); LYMPHOCYTES # (AUTO) 1.27 x10^3/uL (1-3.4); LYMPHOCYTES % (AUTO) 16 % (22-44); MD SCAN; MEAN CORPUSCULAR HEMOGLOBIN 29.8 pg (27.0-34.8); MEAN CORPUSCULAR VOLUME 93.1 fL (80-100); MEAN PLATELET VOLUME 8.7 fL (7.4-10.4); MONOCYTES # (AUTO) 0.15 x10^3/uL (0.2-0.8); MONOCYTES % (AUTO) 2 % (2-9); NEUTROPHILS # (AUTO) 6.42 x10^3/uL (1.8-6.8); NEUTROPHILS % (AUTO) 81 % (42-75); PLATELET COUNT 115 x10^3/uL (130-400); RED BLOOD COUNT 4.49 x10^6/uL (3.82-5.3); RED CELL DISTRIBUTION WIDTH 14.6 % (9.6-15.2)
[2019-01-26] MEDS ORDERED: CEFTRIAXONE PMX 1GM/50ML 50 ML ONE (14:56)
--- NOTE | 2019-01-26 15:05 | NUR ---
LAB CX WERE DRAWN. ROCEPHIN HIREN, INFUSING AT 100ML/HR VIA PUMP. IV SITE PATENT.
--- NOTE | 2019-01-26 15:12 | NUR ---
PT HOSTILE; YELLING UNINTELIGABLE SOUNDS. PULLING AT IV LINES. PT BITING IV LINE. WILL CONSULT ERP
[2019-01-26] MEDS ORDERED: LORazepam 2 MG/ML, 1ML ONE (15:16)
[2019-01-26] MEDS ORDERED: LORazepam 2 MG/ML, 1ML IVPush ONE (15:30)
--- NOTE | 2019-01-26 15:45 | NUR ---
PT DOZING. ROCEPHIN INFUSED.
--- NOTE | 2019-01-26 15:51 | NUR ---
POTASSIUM CHLORIDE 40mEq HUNG; INFUSING AT 130ML/HR VIA PUMP PER EMAR. NS BOLUS INFUSING. IV SITE PATENT. PT DOZING W/ SIDE RAILS UP X2
[2019-01-26] MEDS ORDERED: ONDANSETRON 2MG/ML, 2ML IVPush PRN (16:30)
[2019-01-26] MEDS ORDERED: CALCITONIN SALMON 200 UNITS/ML, 2ML SQ ONE (16:30)
--- NOTE | 2019-01-26 16:34 | NUR ---
TO CT PER ARELIS
[2019-01-26 16:36] LABS: ANION GAP 13 mmol/L (5-15); CALCIUM 13.5 mg/dL (8.5-10.1); CHLORIDE 115 mmol/L (98-107); CREATININE 1.13 mg/dL (0.55-1.02)
--- NOTE | 2019-01-26 17:27 | NUR ---
LUNCH RN: PT RESTING IN BED. NADN. EQUAL CHEST RISE AND GOOD CAP REFILL. FALL RSIK PREVENTION MEASURES IN PLACE.
[2019-01-26] MEDS ORDERED: LACT10SO28 PO (17:31)
--- NOTE | 2019-01-26 17:39 | NUR ---
PT REPORT TO NAEEM OVERTON FOR ROOM 493-1
[2019-01-26 17:55] VITALS: BP 153/84
[2019-01-26] MEDS: SODIUM CHLORIDE 0.45% 1,000 ML IV SCH (19:41)
[2019-01-26 19:44] VITALS: BP 151/94
[2019-01-26 20:00] VITALS: BP 151/94
[2019-01-26 21:12] LABS: ANION GAP 12 mmol/L (5-15); CALCIUM 13.1 mg/dL (8.5-10.1); CHLORIDE 119 mmol/L (98-107); CREATININE 1.23 mg/dL (0.55-1.02)
[2019-01-27 01:27] VITALS: BP 117/71
[2019-01-27 02:00] VITALS: BP 117/71
[2019-01-27] MEDS ORDERED: MAGNESIUM SULFATE PMX 4GM/100M 100 ML IVPB ONE (07:00)
[2019-01-27 07:44] VITALS: BP 177/76
[2019-01-27] MEDS: SODIUM CHLORIDE 0.45% 1,000 ML IV SCH (08:12)
[2019-01-27 10:42] LABS: ALBUMIN 3.3 g/dL (3.4-5.0); ANION GAP 15 mmol/L (5-15); CALCIUM 12.1 mg/dL (8.5-10.1); CHLORIDE 114 mmol/L (98-107)
[2019-01-27 10:54] LABS: ALANINE AMINOTRANSFERASE 24 U/L (12-78); ALKALINE PHOSPHATASE 89 U/L (45-117); BILIRUBIN,TOTAL 0.8 mg/dL (0.2-1.0); CREATININE 1.08 mg/dL (0.55-1.02)
[2019-01-27 11:50] LABS: BASOPHILS # (AUTO) 0.07 x10^3/uL (0-0.1); BASOPHILS % (AUTO) 1 % (0-1); EOSINOPHILS # (AUTO) 0.14 x10^3/uL (0-0.4); EOSINOPHILS % (AUTO) 2 % (1-7); LYMPHOCYTES # (AUTO) 1.42 x10^3/uL (1-3.4); LYMPHOCYTES % (AUTO) 20 % (22-44); MD NO; MEAN CORPUSCULAR HEMOGLOBIN 30.4 pg (27.0-34.8); MEAN CORPUSCULAR HGB CONC 32.4 g/dL (32.4-35.8); MEAN CORPUSCULAR VOLUME 93.9 fL (80-100); MONOCYTES # (AUTO) 0.35 x10^3/uL (0.2-0.8); MONOCYTES % (AUTO) 5 % (2-9); NEUTROPHILS # (AUTO) 5.17 x10^3/uL (1.8-6.8); NEUTROPHILS % (AUTO) 72 % (42-75); PLATELET COUNT 175 x10^3/uL (130-400); RED CELL DISTRIBUTION WIDTH 15.2 % (9.6-15.2)
[2019-01-27 13:39] VITALS: BP 167/98
[2019-01-27] MEDS ORDERED: CALCITONIN SALMON 200 UNITS/ML, 2ML SQ ONE (14:00)
[2019-01-27 14:44] LABS: ANION GAP 15 mmol/L (5-15); CALCIUM 11.5 mg/dL (8.5-10.1); CHLORIDE 114 mmol/L (98-107)
[2019-01-27 14:45] LABS: CREATININE 1.02 mg/dL (0.55-1.02)
[2019-01-27] MEDS ORDERED: POTASSIUM CHLORIDE 40 MEQ in SODIUM CHLORIDE 0.45% 1,000 ML IV SCH (16:30)
[2019-01-27] MEDS: CEFTRIAXONE PMX 1GM/50ML 50 ML IV SCH (17:24)
[2019-01-27] MEDS ORDERED: hydrALAzine 20 MG/ML, 1ML IV PRN (18:00)
[2019-01-27] MEDS: POTASSIUM CHLORIDE 40 MEQ in SODIUM CHLORIDE 0.45% 1,000 ML IV SCH (18:09)
[2019-01-27 20:17] VITALS: BP 152/90
[2019-01-27 20:46] VITALS: BP 156/97
[2019-01-27 21:10] LABS: BASOPHILS # (AUTO) 0.03 x10^3/uL (0-0.1); BASOPHILS % (AUTO) 0 % (0-1); EOSINOPHILS # (AUTO) 0.15 x10^3/uL (0-0.4); EOSINOPHILS % (AUTO) 2 % (1-7); LYMPHOCYTES % (AUTO) 17 % (22-44); MD NO; MEAN CORPUSCULAR HEMOGLOBIN 30.8 pg (27.0-34.8); MEAN CORPUSCULAR HGB CONC 33.1 g/dL (32.4-35.8); MEAN CORPUSCULAR VOLUME 92.9 fL (80-100); MEAN PLATELET VOLUME 7.6 fL (7.4-10.4); MONOCYTES # (AUTO) 0.51 x10^3/uL (0.2-0.8); MONOCYTES % (AUTO) 6 % (2-9); NEUTROPHILS # (AUTO) 6.41 x10^3/uL (1.8-6.8); NEUTROPHILS % (AUTO) 75 % (42-75); PLATELET COUNT 169 x10^3/uL (130-400); RED BLOOD COUNT 3.63 x10^6/uL (3.82-5.3); RED CELL DISTRIBUTION WIDTH 14.4 % (9.6-15.2)
[2019-01-27 21:20] LABS: ALANINE AMINOTRANSFERASE 18 U/L (12-78); ALBUMIN 3.4 g/dL (3.4-5.0); ANION GAP 11 mmol/L (5-15); CALCIUM 10.8 mg/dL (8.5-10.1); CHLORIDE 113 mmol/L (98-107); CREATININE 1.12 mg/dL (0.55-1.02)
[2019-01-27 21:24] LABS: ALKALINE PHOSPHATASE 86 U/L (45-117); BILIRUBIN,TOTAL 0.8 mg/dL (0.2-1.0); TOTAL PROTEIN 6.8 g/dL (6.4-8.2); TROPONIN I < 0.015 ng/mL (0.000-0.045)
[2019-01-28] MEDS: POTASSIUM CHLORIDE 40 MEQ in SODIUM CHLORIDE 0.45% 1,000 ML IV SCH ×4 (00:16→23:01)
[2019-01-28 00:46] VITALS: BP 140/76
[2019-01-28 03:15] LABS: ALANINE AMINOTRANSFERASE 20 U/L (12-78); ALBUMIN 3.1 g/dL (3.4-5.0); ANION GAP 8 mmol/L (5-15); CALCIUM 10.4 mg/dL (8.5-10.1); CHLORIDE 114 mmol/L (98-107); CREATININE 1.01 mg/dL (0.55-1.02)
[2019-01-28 03:17] LABS: ALKALINE PHOSPHATASE 81 U/L (45-117); BILIRUBIN,TOTAL 0.8 mg/dL (0.2-1.0); TOTAL PROTEIN 6.4 g/dL (6.4-8.2)
[2019-01-28 03:27] LABS: TROPONIN I < 0.015 ng/mL (0.000-0.045)
[2019-01-28 03:35] LABS: MD SCAN
[2019-01-28 03:36] LABS: MEAN CORPUSCULAR HEMOGLOBIN 31.5 pg (27.0-34.8); MEAN CORPUSCULAR HGB CONC 33.8 g/dL (32.4-35.8); MEAN CORPUSCULAR VOLUME 93.1 fL (80-100); MEAN PLATELET VOLUME 9.8 fL (7.4-10.4); PLATELET COUNT 163 x10^3/uL (130-400); RED BLOOD COUNT 3.22 x10^6/uL (3.82-5.3); RED CELL DISTRIBUTION WIDTH 14.9 % (9.6-15.2)
[2019-01-28 03:38] LABS: BASOPHILS # (AUTO) 0.04 x10^3/uL (0-0.1); BASOPHILS % (AUTO) 1 % (0-1); EOSINOPHILS # (AUTO) 0.19 x10^3/uL (0-0.4); EOSINOPHILS % (AUTO) 3 % (1-7); LYMPHOCYTES # (AUTO) 1.35 x10^3/uL (1-3.4); LYMPHOCYTES % (AUTO) 18 % (22-44); MONOCYTES # (AUTO) 0.19 x10^3/uL (0.2-0.8); MONOCYTES % (AUTO) 3 % (2-9); NEUTROPHILS # (AUTO) 5.85 x10^3/uL (1.8-6.8); NEUTROPHILS % (AUTO) 77 % (42-75)
[2019-01-28 07:16] VITALS: BP 133/80
[2019-01-28 09:44] LABS: TROPONIN I < 0.015 ng/mL (0.000-0.045)
--- NOTE | 2019-01-28 13:36 | NUR ---
PEER COUNSELOR recommend continued NPO status -Aggressive oral care Addendum: 01/28/19 at 1336 by JELLY BARROS Amended: Links added.
[2019-01-28] MEDS ORDERED: MAGNESIUM SULFATE PMX 2GM/50ML 50 ML IV ONE (14:00)
[2019-01-28 14:03] VITALS: BP 138/78
[2019-01-28] MEDS: CEFTRIAXONE PMX 1GM/50ML 50 ML IV SCH (16:10)
[2019-01-28] MEDS: VALPROATE SODIUM 500 MG in SODIUM CHLORIDE 0.9% 100 ML IV SCH (18:39)
[2019-01-28 20:00] VITALS: BP 137/85
[2019-01-29 01:24] VITALS: BP 155/88
[2019-01-29 02:38] LABS: CHLORIDE,URINE RANDOM 171 mmol/L; POTASSIUM,URINE RANDOM 25 mmol/L; SODIUM,URINE RANDOM 144 mmol/L
[2019-01-29] MEDS: POTASSIUM CHLORIDE 40 MEQ in SODIUM CHLORIDE 0.45% 1,000 ML IV SCH ×3 (04:50→20:30)
[2019-01-29 08:00] VITALS: BP 147/86
[2019-01-29 08:18] LABS: ANION GAP 4 mmol/L (5-15); CALCIUM 10.3 mg/dL (8.5-10.1); CHLORIDE 109 mmol/L (98-107)
[2019-01-29] MEDS: VALPROATE SODIUM 500 MG in SODIUM CHLORIDE 0.9% 100 ML IV SCH ×2 (09:34→21:00)
[2019-01-29 10:21] LABS: FOLATE LEVEL 3.8 ng/mL (3.1-17.5)
[2019-01-29 13:58] VITALS: BP 142/84
[2019-01-29] MEDS: CEFTRIAXONE PMX 1GM/50ML 50 ML IV SCH (14:45)
[2019-01-29 15:23] LABS: AMPHETAMINE SCREEN, URINE Negative (Negative); BARBITURATE SCREEN, URINE Negative (Negative); BENZODIAZEPINE SCREEN, URINE Negative (Negative); CANNABINOID SCREEN, URINE Negative (Negative); COCAINE SCREEN, URINE Negative (Negative); METHADONE SCREEN, URINE Negative (Negative); OPIATE SCREEN, URINE Negative (Negative)
[2019-01-29 15:37] LABS: ANA SCREEN POSITIVE (Negative); ANTI-NUCLEAR ANTIBODY PATTERN SPECKLED
[2019-01-29 18:44] VITALS: BP 142/72
[2019-01-30 02:13] VITALS: BP 144/78
[2019-01-30] MEDS: POTASSIUM CHLORIDE 40 MEQ in SODIUM CHLORIDE 0.45% 1,000 ML IV SCH (05:53)
[2019-01-30 07:25] VITALS: BP 140/76
[2019-01-30 08:35] LABS: ANION GAP 7 mmol/L (5-15); CALCIUM 10.8 mg/dL (8.5-10.1); CHLORIDE 104 mmol/L (98-107)
[2019-01-30 08:38] LABS: CREATININE 0.74 mg/dL (0.55-1.02)
[2019-01-30] MEDS: VALPROATE SODIUM 500 MG in SODIUM CHLORIDE 0.9% 100 ML IV SCH ×2 (10:21→22:18)
[2019-01-30 13:40] VITALS: BP 156/89
[2019-01-30 15:13] LABS: RAPID PLASMA REAGIN Nonreactive (Nonreactive)
[2019-01-30] MEDS ORDERED: POTASSIUM CHLORIDE 40 MEQ in SODIUM CHLORIDE 0.45% 1,000 ML IV SCH (17:30)
[2019-01-30] MEDS: CEFTRIAXONE PMX 1GM/50ML 50 ML IV SCH (17:44)
[2019-01-30 19:25] VITALS: BP 143/91
[2019-01-31 02:45] VITALS: BP 115/83
[2019-01-31 05:15] LABS: BASOPHILS # (AUTO) 0.02 x10^3/uL (0-0.1); BASOPHILS % (AUTO) 0 % (0-1); EOSINOPHILS # (AUTO) 0.25 x10^3/uL (0-0.4); EOSINOPHILS % (AUTO) 3 % (1-7); LYMPHOCYTES # (AUTO) 1.22 x10^3/uL (1-3.4); LYMPHOCYTES % (AUTO) 14 % (22-44); MD NO; MEAN CORPUSCULAR HEMOGLOBIN 30.2 pg (27.0-34.8); MEAN CORPUSCULAR HGB CONC 32.9 g/dL (32.4-35.8); MEAN CORPUSCULAR VOLUME 91.7 fL (80-100); MEAN PLATELET VOLUME 9.3 fL (7.4-10.4); MONOCYTES # (AUTO) 0.51 x10^3/uL (0.2-0.8); MONOCYTES % (AUTO) 6 % (2-9); NEUTROPHILS # (AUTO) 6.46 x10^3/uL (1.8-6.8); NEUTROPHILS % (AUTO) 76 % (42-75); PLATELET COUNT 168 x10^3/uL (130-400); RED BLOOD COUNT 3.89 x10^6/uL (3.82-5.3); RED CELL DISTRIBUTION WIDTH 14.7 % (9.6-15.2)
[2019-01-31 05:18] LABS: ANION GAP 9 mmol/L (5-15); CALCIUM 11.3 mg/dL (8.5-10.1); CHLORIDE 102 mmol/L (98-107)
[2019-01-31] MEDS: POTASSIUM CHLORIDE 40 MEQ in SODIUM CHLORIDE 0.45% 1,000 ML IV SCH ×2 (06:24→21:00)
[2019-01-31 07:27] VITALS: BP 123/79
[2019-01-31] MEDS: VALPROATE SODIUM 500 MG in SODIUM CHLORIDE 0.9% 100 ML IV SCH ×2 (10:08→21:14)
[2019-01-31 13:49] VITALS: BP 142/87
[2019-01-31] MEDS: CEFTRIAXONE PMX 1GM/50ML 50 ML IV SCH (15:29)
[2019-01-31 19:25] VITALS: BP 106/68
[2019-02-01 00:21] VITALS: BP 132/70
[2019-02-01 05:57] LABS: BASOPHILS # (AUTO) 0.05 x10^3/uL (0-0.1); BASOPHILS % (AUTO) 1 % (0-1); EOSINOPHILS # (AUTO) 0.31 x10^3/uL (0-0.4); EOSINOPHILS % (AUTO) 4 % (1-7); LYMPHOCYTES # (AUTO) 1.36 x10^3/uL (1-3.4); LYMPHOCYTES % (AUTO) 18 % (22-44); MD NO; MEAN CORPUSCULAR HEMOGLOBIN 30.4 pg (27.0-34.8); MEAN CORPUSCULAR VOLUME 92.1 fL (80-100); MEAN PLATELET VOLUME 9.8 fL (7.4-10.4); MONOCYTES # (AUTO) 0.58 x10^3/uL (0.2-0.8); MONOCYTES % (AUTO) 8 % (2-9); NEUTROPHILS # (AUTO) 5.42 x10^3/uL (1.8-6.8); NEUTROPHILS % (AUTO) 70 % (42-75); PLATELET COUNT 174 x10^3/uL (130-400); RED CELL DISTRIBUTION WIDTH 15.1 % (9.6-15.2)
[2019-02-01 06:04] LABS: ALBUMIN 3.8 g/dL (3.4-5.0); ANION GAP 9 mmol/L (5-15); CALCIUM 11.7 mg/dL (8.5-10.1); CHLORIDE 102 mmol/L (98-107)
[2019-02-01 06:08] LABS: ALANINE AMINOTRANSFERASE 120 U/L (12-78); ALKALINE PHOSPHATASE 132 U/L (45-117); BILIRUBIN,TOTAL 0.8 mg/dL (0.2-1.0); CREATININE 0.91 mg/dL (0.55-1.02); TOTAL PROTEIN 7.8 g/dL (6.4-8.2)
[2019-02-01 06:51] VITALS: BP 124/86
[2019-02-01] MEDS: POTASSIUM CHLORIDE 40 MEQ in SODIUM CHLORIDE 0.45% 1,000 ML IV SCH (08:15)
[2019-02-01] MEDS: CINACALCET 30 MG TABLET PO SCH ×2 (09:00→20:50)
[2019-02-01] MEDS: VALPROATE SODIUM 500 MG in SODIUM CHLORIDE 0.9% 100 ML IV SCH ×2 (09:32→20:50)
[2019-02-01 12:26] VITALS: BP 112/82
[2019-02-01] MEDS ORDERED: LORazepam 2 MG/ML, 1ML IVPush ONE (12:30)
[2019-02-01 19:23] VITALS: BP 100/69
[2019-02-02 01:13] VITALS: BP 128/92
[2019-02-02] MEDS: POTASSIUM CHLORIDE 40 MEQ in SODIUM CHLORIDE 0.45% 1,000 ML IV SCH ×2 (01:23→10:23)
[2019-02-02 06:17] LABS: BASOPHILS # (AUTO) 0.04 x10^3/uL (0-0.1); BASOPHILS % (AUTO) 1 % (0-1); EOSINOPHILS % (AUTO) 4 % (1-7); LYMPHOCYTES # (AUTO) 0.63 x10^3/uL (1-3.4); LYMPHOCYTES % (AUTO) 13 % (22-44); MD NO; MEAN CORPUSCULAR HEMOGLOBIN 29.8 pg (27.0-34.8); MEAN CORPUSCULAR HGB CONC 32.7 g/dL (32.4-35.8); MEAN CORPUSCULAR VOLUME 91.1 fL (80-100); MEAN PLATELET VOLUME 9.7 fL (7.4-10.4); MONOCYTES # (AUTO) 0.55 x10^3/uL (0.2-0.8); MONOCYTES % (AUTO) 11 % (2-9); NEUTROPHILS # (AUTO) 3.45 x10^3/uL (1.8-6.8); NEUTROPHILS % (AUTO) 71 % (42-75); PLATELET COUNT 150 x10^3/uL (130-400); RED BLOOD COUNT 3.74 x10^6/uL (3.82-5.3); RED CELL DISTRIBUTION WIDTH 15.2 % (9.6-15.2)
[2019-02-02 06:20] LABS: ALBUMIN 3.1 g/dL (3.4-5.0); ANION GAP 7 mmol/L (5-15); CALCIUM 11.1 mg/dL (8.5-10.1); CHLORIDE 106 mmol/L (98-107)
[2019-02-02 06:25] LABS: ALANINE AMINOTRANSFERASE 170 U/L (12-78); ALKALINE PHOSPHATASE 136 U/L (45-117); BILIRUBIN,TOTAL 0.5 mg/dL (0.2-1.0); CREATININE 0.82 mg/dL (0.55-1.02); TOTAL PROTEIN 6.7 g/dL (6.4-8.2)
[2019-02-02 07:12] VITALS: BP 124/89
[2019-02-02] MEDS: CINACALCET 30 MG TABLET PO SCH ×2 (09:00→21:58)
[2019-02-02] MEDS: VALPROATE SODIUM 500 MG in SODIUM CHLORIDE 0.9% 100 ML IV SCH ×2 (10:24→21:54)
[2019-02-02 13:15] VITALS: BP 94/73
[2019-02-02 18:45] VITALS: BP 111/75
[2019-02-03] MEDS: POTASSIUM CHLORIDE 40 MEQ in SODIUM CHLORIDE 0.45% 1,000 ML IV SCH ×2 (00:43→10:35)
[2019-02-03 01:08] VITALS: BP 117/80
[2019-02-03 07:28] LABS: BASOPHILS # (AUTO) 0.04 x10^3/uL (0-0.1); BASOPHILS % (AUTO) 1 % (0-1); EOSINOPHILS # (AUTO) 0.19 x10^3/uL (0-0.4); EOSINOPHILS % (AUTO) 4 % (1-7); LYMPHOCYTES # (AUTO) 0.85 x10^3/uL (1-3.4); LYMPHOCYTES % (AUTO) 17 % (22-44); MD NO; MEAN CORPUSCULAR HEMOGLOBIN 30.8 pg (27.0-34.8); MEAN CORPUSCULAR HGB CONC 33.9 g/dL (32.4-35.8); MEAN CORPUSCULAR VOLUME 91.1 fL (80-100); MEAN PLATELET VOLUME 9.7 fL (7.4-10.4); MONOCYTES # (AUTO) 0.63 x10^3/uL (0.2-0.8); MONOCYTES % (AUTO) 13 % (2-9); NEUTROPHILS # (AUTO) 3.23 x10^3/uL (1.8-6.8); NEUTROPHILS % (AUTO) 65 % (42-75); PLATELET COUNT 125 x10^3/uL (130-400); RED BLOOD COUNT 3.31 x10^6/uL (3.82-5.3); RED CELL DISTRIBUTION WIDTH 15.5 % (9.6-15.2)
[2019-02-03 07:38] LABS: ALANINE AMINOTRANSFERASE 189 U/L (12-78); ALBUMIN 2.9 g/dL (3.4-5.0); ANION GAP 8 mmol/L (5-15); CALCIUM 10.7 mg/dL (8.5-10.1); CHLORIDE 103 mmol/L (98-107); CREATININE 0.72 mg/dL (0.55-1.02)
[2019-02-03 07:41] LABS: ALKALINE PHOSPHATASE 142 U/L (45-117); BILIRUBIN,TOTAL 0.5 mg/dL (0.2-1.0); TOTAL PROTEIN 6.5 g/dL (6.4-8.2)
[2019-02-03 09:19] VITALS: BP 123/86
[2019-02-03] MEDS: CINACALCET 30 MG TABLET PO SCH ×2 (10:35→21:46)
[2019-02-03] MEDS: VALPROATE SODIUM 500 MG in SODIUM CHLORIDE 0.9% 100 ML IV SCH ×2 (10:35→22:12)
[2019-02-03] MEDS ORDERED: BUPIVACAINE/PF-EPI 0.5% 1:200K ONE (11:40)
[2019-02-03] MEDS ORDERED: SUCCINYLCHOLINE 20 MG/ML, 10ML ONE (12:04)
[2019-02-03] MEDS ORDERED: PROPOFOL 10 MG/ML, 20ML ONE (12:04)
[2019-02-03] MEDS ORDERED: CEFAZOLIN 1,000 MG ONE (12:04)
[2019-02-03] MEDS ORDERED: OXYcodone 5 MG/5 ML ORAL.SOL UDC PO PRN (13:00)
[2019-02-03] MEDS ORDERED: METOCLOPRAMIDE 5 MG/ML, 2ML IV PRN (13:00)
[2019-02-03] MEDS ORDERED: HYDROmorphone 1 MG/ML, 1ML IV PRN (13:00)
[2019-02-03] MEDS ORDERED: PROMETHAZINE 25 MG/ML, 1ML IV PRN (13:00)
[2019-02-03] MEDS ORDERED: KETOROLAC 30 MG/1 ML IV PRN (13:00)
[2019-02-03] MEDS ORDERED: LABETALOL 5MG/ML, 20ML IV PRN (13:00)
[2019-02-03] MEDS ORDERED: ONDANSETRON 2MG/ML, 2ML IVPush PRN (13:00)
[2019-02-03] MEDS ORDERED: MEPERIDINE/PF 25MG/0.5ML IVPush PRN (13:00)
[2019-02-03] MEDS ORDERED: FENTANYL PF 100 MCG/2ML IV PRN (13:00)
[2019-02-03] MEDS ORDERED: hydrALAzine 20 MG/ML, 1ML IV PRN (13:00)
[2019-02-03] MEDS ORDERED: ALBUTEROL SULFATE 2.5 MG/3 ML NPPB PRN (13:00)
[2019-02-03] MEDS ORDERED: FENTANYL PF 100 MCG/2ML ONE (13:17)
[2019-02-03 13:50] VITALS: BP 138/99
[2019-02-03 19:20] VITALS: BP 154/110
[2019-02-03] MEDS ORDERED: KETOROLAC 30 MG/1 ML IVPush PRN (22:00)
[2019-02-04 00:46] VITALS: BP 138/83
[2019-02-04] MEDS: POTASSIUM CHLORIDE 40 MEQ in SODIUM CHLORIDE 0.45% 1,000 ML IV SCH ×2 (01:53→14:32)
[2019-02-04 05:59] LABS: ANION GAP 6 mmol/L (5-15); CALCIUM 10.5 mg/dL (8.5-10.1); CHLORIDE 106 mmol/L (98-107); CREATININE 0.67 mg/dL (0.55-1.02)
[2019-02-04 08:08] VITALS: BP 134/78
[2019-02-04] MEDS: CINACALCET 30 MG TABLET PO SCH ×2 (09:32→21:42)
[2019-02-04] MEDS: VALPROATE SODIUM 500 MG in SODIUM CHLORIDE 0.9% 100 ML IV SCH ×2 (09:32→21:48)
[2019-02-04 14:06] VITALS: BP 138/89
[2019-02-04 18:59] VITALS: BP 146/91
[2019-02-05 00:34] VITALS: BP 154/92
[2019-02-05] MEDS: POTASSIUM CHLORIDE 40 MEQ in SODIUM CHLORIDE 0.45% 1,000 ML IV SCH ×2 (00:51→08:10)
[2019-02-05 07:31] VITALS: BP 163/94
[2019-02-05] MEDS: CINACALCET 30 MG TABLET PO SCH (08:33)
[2019-02-05] MEDS: VALPROATE SODIUM 500 MG in SODIUM CHLORIDE 0.9% 100 ML IV SCH ×2 (08:33→20:22)
[2019-02-05 09:01] LABS: ALANINE AMINOTRANSFERASE 151 U/L (12-78); ALBUMIN 2.8 g/dL (3.4-5.0); ANION GAP 5 mmol/L (5-15); CALCIUM 10.3 mg/dL (8.5-10.1); CHLORIDE 102 mmol/L (98-107); CREATININE 0.69 mg/dL (0.55-1.02)
[2019-02-05 09:03] LABS: ALKALINE PHOSPHATASE 150 U/L (45-117); BILIRUBIN,TOTAL 0.7 mg/dL (0.2-1.0); TOTAL PROTEIN 6.8 g/dL (6.4-8.2)
[2019-02-05 09:05] LABS: BASOPHILS # (AUTO) 0.03 x10^3/uL (0-0.1); BASOPHILS % (AUTO) 1 % (0-1); EOSINOPHILS # (AUTO) 0.12 x10^3/uL (0-0.4); EOSINOPHILS % (AUTO) 2 % (1-7); LYMPHOCYTES # (AUTO) 0.94 x10^3/uL (1-3.4); LYMPHOCYTES % (AUTO) 15 % (22-44); MD NO; MEAN CORPUSCULAR HEMOGLOBIN 30.2 pg (27.0-34.8); MEAN CORPUSCULAR HGB CONC 33.3 g/dL (32.4-35.8); MEAN CORPUSCULAR VOLUME 90.7 fL (80-100); MEAN PLATELET VOLUME 10.9 fL (7.4-10.4); MONOCYTES # (AUTO) 0.66 x10^3/uL (0.2-0.8); MONOCYTES % (AUTO) 10 % (2-9); NEUTROPHILS # (AUTO) 4.54 x10^3/uL (1.8-6.8); NEUTROPHILS % (AUTO) 72 % (42-75); PLATELET COUNT 126 x10^3/uL (130-400); RED BLOOD COUNT 3.68 x10^6/uL (3.82-5.3); RED CELL DISTRIBUTION WIDTH 15.9 % (9.6-15.2)
[2019-02-05 13:23] VITALS: BP 140/84
[2019-02-05 19:20] VITALS: BP 142/92
[2019-02-05] MEDS: OXYcodone 5 MG/5 ML ORAL.SOL UDC PEG PRN (20:22)
[2019-02-06 01:33] VITALS: BP 109/76
[2019-02-06] MEDS: OXYcodone 5 MG/5 ML ORAL.SOL UDC PEG PRN (03:36)
[2019-02-06 07:55] VITALS: BP 112/79
[2019-02-06] MEDS: VALPROATE SODIUM 250 MG/5 ML ORAL SOLN PO SCH ×3 (11:27→20:43)
--- NOTE | 2019-02-06 12:50 | NUR ---
REC: Advance to ground diet with thin liquids with assistance for meals Addendum: 02/06/19 at 1250 by Elen BARROS Amended: Links added.
[2019-02-06 14:12] VITALS: BP 116/74
[2019-02-06 19:08] VITALS: BP 130/77
[2019-02-07 00:07] VITALS: BP 96/65
[2019-02-07 05:43] LABS: CHLORIDE 98 mmol/L (98-107)
[2019-02-07] MEDS: VALPROATE SODIUM 250 MG/5 ML ORAL SOLN PO SCH ×4 (05:49→20:33)
[2019-02-07 05:52] LABS: ANION GAP 7 mmol/L (5-15); CALCIUM 11.4 mg/dL (8.5-10.1)
[2019-02-07 06:01] LABS: BASOPHILS # (AUTO) 0.06 x10^3/uL (0-0.1); BASOPHILS % (AUTO) 1 % (0-1); EOSINOPHILS # (AUTO) 0.08 x10^3/uL (0-0.4); EOSINOPHILS % (AUTO) 1 % (1-7); LYMPHOCYTES # (AUTO) 1.62 x10^3/uL (1-3.4); LYMPHOCYTES % (AUTO) 15 % (22-44); MD NO; MEAN CORPUSCULAR HEMOGLOBIN 30.9 pg (27.0-34.8); MEAN CORPUSCULAR HGB CONC 34.2 g/dL (32.4-35.8); MEAN CORPUSCULAR VOLUME 90.3 fL (80-100); MEAN PLATELET VOLUME 9.5 fL (7.4-10.4); MONOCYTES % (AUTO) 13 % (2-9); NEUTROPHILS # (AUTO) 7.78 x10^3/uL (1.8-6.8); NEUTROPHILS % (AUTO) 71 % (42-75); PLATELET COUNT 163 x10^3/uL (130-400); RED BLOOD COUNT 3.27 x10^6/uL (3.82-5.3)
[2019-02-07 07:30] VITALS: BP 99/66
[2019-02-07] MEDS: CINACALCET 30 MG TABLET PO SCH ×2 (09:46→20:33)
[2019-02-07 14:24] VITALS: BP 102/69
[2019-02-07 19:52] VITALS: BP 116/75
[2019-02-08 01:33] VITALS: BP 100/67
[2019-02-08] MEDS: VALPROATE SODIUM 250 MG/5 ML ORAL SOLN PO SCH ×4 (05:44→20:34)
[2019-02-08 06:00] LABS: ALANINE AMINOTRANSFERASE 87 U/L (12-78); ALBUMIN 2.6 g/dL (3.4-5.0); ANION GAP 7 mmol/L (5-15); BASOPHILS # (AUTO) 0.02 x10^3/uL (0-0.1); BASOPHILS % (AUTO) 0 % (0-1); CALCIUM 10.9 mg/dL (8.5-10.1); CHLORIDE 98 mmol/L (98-107); EOSINOPHILS # (AUTO) 0.03 x10^3/uL (0-0.4); EOSINOPHILS % (AUTO) 0 % (1-7); LYMPHOCYTES # (AUTO) 0.88 x10^3/uL (1-3.4); LYMPHOCYTES % (AUTO) 13 % (22-44); MD NO; MEAN CORPUSCULAR HGB CONC 32.7 g/dL (32.4-35.8); MEAN CORPUSCULAR VOLUME 91.8 fL (80-100); MEAN PLATELET VOLUME 10.2 fL (7.4-10.4); MONOCYTES # (AUTO) 1.03 x10^3/uL (0.2-0.8); MONOCYTES % (AUTO) 15 % (2-9); NEUTROPHILS # (AUTO) 4.77 x10^3/uL (1.8-6.8); NEUTROPHILS % (AUTO) 71 % (42-75); PLATELET COUNT 143 x10^3/uL (130-400); RED CELL DISTRIBUTION WIDTH 15.6 % (9.6-15.2)
[2019-02-08 06:04] LABS: ALKALINE PHOSPHATASE 146 U/L (45-117); BILIRUBIN,TOTAL 0.6 mg/dL (0.2-1.0); CREATININE 0.96 mg/dL (0.55-1.02); TOTAL PROTEIN 6.6 g/dL (6.4-8.2)
[2019-02-08] MEDS: INSULIN LISPRO 100 UNITS/ML, PEN SQ-INSULIN SCH ×4 (06:56→20:34)
[2019-02-08] MEDS: ONDANSETRON ODT 4 MG PO PRN (08:14)
[2019-02-08] MEDS: CINACALCET 30 MG TABLET PO SCH ×2 (08:14→20:32)
[2019-02-08 08:24] VITALS: BP 108/69
[2019-02-08] MEDS ORDERED: INSULIN LISPRO 100 UNITS/ML, PEN SQ-INSULIN ONE ×3 (08:30)
[2019-02-08 10:44] LABS: HEMOGLOBIN A1C 4.6 % (4.2-6.3)
[2019-02-08 12:44] VITALS: BP 112/64
[2019-02-08 19:24] VITALS: BP 96/61
[2019-02-09 00:26] VITALS: BP 92/62
[2019-02-09] MEDS: VALPROATE SODIUM 250 MG/5 ML ORAL SOLN PO SCH ×4 (05:45→20:10)
[2019-02-09 06:28] LABS: BASOPHILS # (AUTO) 0.05 x10^3/uL (0-0.1); BASOPHILS % (AUTO) 1 % (0-1); EOSINOPHILS # (AUTO) 0.09 x10^3/uL (0-0.4); EOSINOPHILS % (AUTO) 1 % (1-7); LYMPHOCYTES # (AUTO) 1.02 x10^3/uL (1-3.4); LYMPHOCYTES % (AUTO) 14 % (22-44); MD NO; MEAN CORPUSCULAR HEMOGLOBIN 30.5 pg (27.0-34.8); MEAN CORPUSCULAR HGB CONC 33.4 g/dL (32.4-35.8); MEAN CORPUSCULAR VOLUME 91.3 fL (80-100); MEAN PLATELET VOLUME 9.4 fL (7.4-10.4); MONOCYTES # (AUTO) 1.31 x10^3/uL (0.2-0.8); MONOCYTES % (AUTO) 17 % (2-9); NEUTROPHILS # (AUTO) 5.06 x10^3/uL (1.8-6.8); NEUTROPHILS % (AUTO) 67 % (42-75); PLATELET COUNT 146 x10^3/uL (130-400); RED BLOOD COUNT 3.01 x10^6/uL (3.82-5.3); RED CELL DISTRIBUTION WIDTH 15.5 % (9.6-15.2)
[2019-02-09 06:42] LABS: ALBUMIN 2.4 g/dL (3.4-5.0); ANION GAP 8 mmol/L (5-15); CHLORIDE 101 mmol/L (98-107)
[2019-02-09 06:47] LABS: ALANINE AMINOTRANSFERASE 86 U/L (12-78); ALKALINE PHOSPHATASE 135 U/L (45-117); BILIRUBIN,TOTAL 0.5 mg/dL (0.2-1.0); CREATININE 0.66 mg/dL (0.55-1.02); TOTAL PROTEIN 6.4 g/dL (6.4-8.2)
[2019-02-09] MEDS: INSULIN LISPRO 100 UNITS/ML, PEN SQ-INSULIN SCH ×4 (07:00→20:10)
[2019-02-09 08:08] VITALS: BP 105/74
[2019-02-09] MEDS: CINACALCET 30 MG TABLET PO SCH ×2 (08:42→20:10)
[2019-02-09 12:32] VITALS: BP 91/64
[2019-02-09] MEDS: ONDANSETRON ODT 4 MG PO PRN (17:28)
[2019-02-09 19:06] VITALS: BP 104/69
[2019-02-10 00:32] VITALS: BP 96/62
[2019-02-10] MEDS: VALPROATE SODIUM 250 MG/5 ML ORAL SOLN PO SCH ×3 (05:55→15:50)
[2019-02-10 06:54] VITALS: BP 99/67
[2019-02-10] MEDS: INSULIN LISPRO 100 UNITS/ML, PEN SQ-INSULIN SCH ×3 (07:00→15:50)
[2019-02-10] MEDS: CINACALCET 30 MG TABLET PO SCH (09:36)
[2019-02-10] MEDS ORDERED: METO5VIA30 IV (12:29)
[2019-02-10] MEDS ORDERED: ALBU2.5V NPPB (12:29)
[2019-02-10] MEDS ORDERED: VALP250S PO (12:29)
[2019-02-10] MEDS ORDERED: INSU100I11 SQ-INSULIN (12:29)
[2019-02-10] MEDS ORDERED: ONDA4TAB13 PO (12:29)
[2019-02-10] MEDS ORDERED: CINA30TA2 PO (12:29)
[2019-02-10 13:20] VITALS: BP 102/69
[2019-02-10 13:32] VITALS: BP 110/74
== END 2019-02-10 16:25 | DRG 56 ==
LOC: ED 15:01 → EDIP 15:17 → 4EST 17:47
PROVIDERS: ADMIT Internal Medicine; ATTEND Emergency Medicine
PROC: 0T9B70Z Drainage of Bladder with Drainage Device, Via Natural or Artificial Opening (ICD-10-PCS; 2019-01-26)
PROC: 0DH64UZ Insertion of Feeding Device into Stomach, Percutaneous Endoscopic Approach (ICD-10-PCS; principal; 2019-02-03 12:00)
DX: G31.2 Degeneration of nervous system due to alcohol (principal); N17.0 Acute kidney failure with tubular necrosis; N17.1 Acute kidney failure with acute cortical necrosis; E87.0 Hyperosmolality and hypernatremia; F10.239 Alcohol dependence with withdrawal, unspecified; R47.01 Aphasia; I69.351 Hemiplegia and hemiparesis following cerebral infarction affecting right dominant side; R29.810 Facial weakness; G40.901 Epilepsy, unspecified, not intractable, with status epilepticus; I25.10 Atherosclerotic heart disease of native coronary artery without angina pectoris; I10 Essential (primary) hypertension; D64.9 Anemia, unspecified; R62.7 Adult failure to thrive; Z66 Do not resuscitate; N30.90 Cystitis, unspecified without hematuria; E87.6 Hypokalemia; E11.65 Type 2 diabetes mellitus with hyperglycemia; B96.1 Klebsiella pneumoniae [K. pneumoniae] as the cause of diseases classified elsewhere; B96.89 Other specified bacterial agents as the cause of diseases classified elsewhere; E21.3 Hyperparathyroidism, unspecified; D69.6 Thrombocytopenia, unspecified; I25.2 Old myocardial infarction; Z87.820 Personal history of traumatic brain injury; Z83.3 Family history of diabetes mellitus; Z82.49 Family history of ischemic heart disease and other diseases of the circulatory system
CPT/HCPCS: 36415; 36600; 70450; 70551; 71045; 74018; 76536; 78070; 80048; 80053; 80164; 80307; 81001; 82140; 82306; 82330; 82390; 82436; 82525; 82533; 82607; 82746; 82803; 82962; 83036; 83605; 83735; 83970; 84100; 84132; 84133; 84145; 84155; 84156; 84165; 84166; 84300; 84443; 84484; 85025; 85651; 86038; 86039; 86592; 87040; 87077; 87086; 87186; 87806; 93005; 93017; 93931; 95819; 96374; 99285; B4087; G0378; J0690; J0696; J2704; J3010; J3480; Q0162; A9500; G0475; J0330; J0630; J1815; J2060; J3475; J7030; J7040